=== PATIENT | female | born 1945 | race Caucasian/White ===

== ENCOUNTER 2016-12-09 17:07 | Inpatient (IN) | payer OTHER ==
[~2016-12-09] VITALS: Ht 149.9 cm; Wt 82.4 kg
[~2016-12-09 17:07] MED LIST: ATOR40TA78 PO; CITA40TA5 PO; DOCU-30 PO; FAMO20TA7 PO; HYDR25TA6 PO; LISI-167 PO; MECL12.52 PO; MELO-184 PO; METH500T7 PO; ONDA4TAB7 PO; OXYB5TAB7 PO; PRED10TA PO; TRAM50TA2 PO; ZOLP10TA5 PO
[2016-12-09] MEDS ORDERED: OXYC-302 PO (17:52)
[2016-12-09] MEDS ORDERED: BACL20TA PO (17:52)
[2016-12-09] MEDS ORDERED: MORP15TA39 PO (17:52)
[2016-12-09] MEDS ORDERED: DIAZ5TAB4 PO (17:52)
[2016-12-09] MEDS ORDERED: FAMO40TA4 PO (17:52)
[2016-12-09] MEDS ORDERED: ALBU0.63 NEB (17:52)
[2016-12-09] MEDS ORDERED: GABA300C10 PO (17:52)
[2016-12-09] MEDS ORDERED: ALBUTEROL SULFATE 2.5 MG/3 ML ONE (17:55)
[2016-12-09] MEDS ORDERED: AZITHROMYCIN 500 MG in SODIUM CHLORIDE 0.9% 250 ML IVPB ONE (18:00)
[2016-12-09] MEDS ORDERED: ALBUTEROL SULFATE 2.5 MG/3 ML NPPB ONE (18:00)
[2016-12-09] MEDS ORDERED: methylPREDNISolone SOD SUCC 125 MG/2 ML IVP ONE (18:00)
[2016-12-09] MEDS ORDERED: SODIUM CHLORIDE FLUSH 10ML SYR IVF ONE (18:00)
[2016-12-09 18:12] LABS: HEMOGLOBIN 9.8 g/dL (11.7-16.4)
[2016-12-09] MEDS ORDERED: methylPREDNISolone SOD SUCC 125 MG/2 ML ONE (18:19)
[2016-12-09 18:23] LABS: ASPARTATE AMINO TRANSFERASE 31 U/L (15-37); BLOOD UREA NITROGEN 15 mg/dL (7-18)
[2016-12-09 18:28] LABS: IS PT STATUS REG ER OR PRE ER? YES
[2016-12-09] MEDS ORDERED: ASPIRIN 81 MG TABLET CHEW PO ONE (19:00)
[2016-12-09] MEDS ORDERED: ASPIRIN 81 MG TABLET CHEW ONE (19:15)
[2016-12-09] MEDS ORDERED: NS + 20MEQ KCL 1,000 ML IV SCH (19:21)
[2016-12-09] MEDS ORDERED: ALBUTEROL SULFATE 2.5 MG/3 ML NEB PRN (19:30)
[2016-12-09] MEDS ORDERED: ACETAMINOPHEN 325 MG TABLET PO PRN (19:30)
[2016-12-09] MEDS ORDERED: POLYETHYLENE GLYCOL 17 GM PACKET PO PRN (19:30)
[2016-12-09] MEDS ORDERED: ONDANSETRON 2MG/ML, 2ML IVP PRN (19:30)
[2016-12-09] MEDS ORDERED: DOCUSATE 100 MG CAPSULE PO PRN (19:30)
[2016-12-09] MEDS ORDERED: MORPHINE SULFATE 4 MG/ML, 1ML IVPush PRN (19:30)
[2016-12-09 20:51] VITALS: BP 124/81
[2016-12-09] MEDS: CEFTRIAXONE PMX 1GM/50ML 50 ML IV SCH (22:01)
[2016-12-09] MEDS: ENOXAPARIN 40 MG/0.4 ML SQ SCH (22:09)
[2016-12-09] MEDS: GABAPENTIN 100 MG CAPSULE PO SCH (22:10)
[2016-12-09] MEDS: OXYBUTYNIN CHLORIDE 5 MG TABLET PO SCH (22:11)
[2016-12-09] MEDS: ATORVASTATIN 40 MG TABLET PO SCH (22:11)
[2016-12-09] MEDS: FAMOTIDINE 40 MG TABLET PO SCH (22:11)
[2016-12-09] MEDS: BACLOFEN 10 MG TABLET PO SCH (22:12)
[2016-12-09] MEDS: DIAZEPAM 5 MG TABLET PO SCH ×2 (22:12→23:02)
[2016-12-09] MEDS: DOCUSATE 100 MG CAPSULE PO SCH (22:12)
[2016-12-09] MEDS: AZITHROMYCIN 500 MG in SODIUM CHLORIDE 0.9% 250 ML IV SCH (22:57)
[2016-12-10 02:00] VITALS: BP 113/54
[2016-12-10 05:53] LABS: IS PT STATUS REG ER OR PRE ER? NO
[2016-12-10] MEDS: ALBUTEROL/IPRATROPIUM 2.5MG/0.5MG, 3 ML NPPB SCH ×4 (07:10→20:40)
[2016-12-10 07:44] VITALS: BP 144/70
[2016-12-10] MEDS: SENNA/DOCUSATE TABLET PO SCH (09:00)
[2016-12-10] MEDS: DIAZEPAM 5 MG TABLET PO SCH ×2 (09:15→19:59)
[2016-12-10] MEDS: CITALOPRAM 20 MG TABLET PO SCH (09:16)
[2016-12-10] MEDS: BACLOFEN 10 MG TABLET PO SCH ×3 (09:16→19:59)
[2016-12-10] MEDS: DOCUSATE 100 MG CAPSULE PO SCH ×2 (09:16→19:59)
[2016-12-10] MEDS: OXYBUTYNIN CHLORIDE 5 MG TABLET PO SCH ×2 (09:16→19:59)
[2016-12-10] MEDS: GABAPENTIN 100 MG CAPSULE PO SCH ×3 (09:16→19:59)
[2016-12-10] MEDS: LISINOPRIL 10 MG TABLET PO SCH (09:17)
[2016-12-10] MEDS: FAMOTIDINE 40 MG TABLET PO SCH ×2 (09:17→19:59)
[2016-12-10 13:06] VITALS: BP 125/56
[2016-12-10] MEDS: OXYcodone/APAP 5/325MG TABLET PO PRN (15:34)
[2016-12-10 19:39] VITALS: BP 115/69
[2016-12-10] MEDS: ATORVASTATIN 40 MG TABLET PO SCH (19:59)
[2016-12-10] MEDS: ENOXAPARIN 40 MG/0.4 ML SQ SCH (22:22)
[2016-12-10] MEDS: CEFTRIAXONE PMX 1GM/50ML 50 ML IV SCH (22:22)
[2016-12-11] MEDS: OXYcodone/APAP 5/325MG TABLET PO PRN ×3 (00:30→16:09)
[2016-12-11 02:58] VITALS: BP 117/69
[2016-12-11 06:10] LABS: HEMOGLOBIN 7.9 g/dL (11.7-16.4)
[2016-12-11 06:15] LABS: BLOOD UREA NITROGEN 9 mg/dL (7-18)
[2016-12-11] MEDS: ALBUTEROL/IPRATROPIUM 2.5MG/0.5MG, 3 ML NPPB SCH ×4 (07:00→19:05)
[2016-12-11 07:13] VITALS: BP 118/75
[2016-12-11] MEDS: BACLOFEN 10 MG TABLET PO SCH ×2 (09:04→16:09)
[2016-12-11] MEDS: DOCUSATE 100 MG CAPSULE PO SCH (09:04)
[2016-12-11] MEDS: GABAPENTIN 100 MG CAPSULE PO SCH ×2 (09:04→16:09)
[2016-12-11] MEDS: OXYBUTYNIN CHLORIDE 5 MG TABLET PO SCH (09:04)
[2016-12-11] MEDS: FAMOTIDINE 40 MG TABLET PO SCH (09:04)
[2016-12-11] MEDS: LISINOPRIL 10 MG TABLET PO SCH (09:04)
[2016-12-11] MEDS: CITALOPRAM 20 MG TABLET PO SCH (09:04)
[2016-12-11] MEDS: SENNA/DOCUSATE TABLET PO SCH (09:05)
[2016-12-11] MEDS: DIAZEPAM 5 MG TABLET PO SCH (09:14)
[2016-12-11 12:37] VITALS: BP 103/64
== END 2016-12-11 19:45 | disposition home or self-care (01) | DRG 189 ==
LOC: ED 18:09 → SUATTDRO 18:46 → EDIP 18:52 → 3NE 20:48
PROVIDERS: ADMIT Family Medicine; ATTEND Family Medicine
DX: J96.01 Acute respiratory failure with hypoxia (principal); E43 Unspecified severe protein-calorie malnutrition; E87.1 Hypo-osmolality and hyponatremia; I24.8 Other forms of acute ischemic heart disease; Z66 Do not resuscitate; E78.5 Hyperlipidemia, unspecified; I10 Essential (primary) hypertension; G89.29 Other chronic pain; M54.9 Dorsalgia, unspecified; E66.9 Obesity, unspecified; K59.00 Constipation, unspecified; Z79.82 Long term (current) use of aspirin; Z82.49 Family history of ischemic heart disease and other diseases of the circulatory system; Z68.36 Body mass index [BMI] 36.0-36.9, adult; Z88.0 Allergy status to penicillin; Z91.013 Allergy to seafood
CPT/HCPCS: 36415; 71010; 80048; 80053; 83605; 83880; 84484; 85025; 87040; 93005; 94640; 96365; 96375; J0456; J0696; J1650; J3480; J7613; J7620; J2930; J7050

== ENCOUNTER → 2017-01-25 | Outpatient (CLI) | payer OTHER ==
[~2017-01-25] MED LIST changes: +ALBU0.63 NEB; +BACL20TA PO; +DIAZ5TAB4 PO; +FAMO40TA4 PO; +GABA300C10 PO; +MORP15TA39 PO; +OXYC-302 PO
== END | disposition home or self-care (01) ==
LOC: RAD 15:06
PROVIDERS: ATTEND Physician Assistant Surgical
DX: M48.56XA Collapsed vertebra, not elsewhere classified, lumbar region, initial encounter for fracture (principal)

== ENCOUNTER 2017-01-28 09:12 | Day surgery (SDC) | payer OTHER ==
[~2017-01-28] VITALS: Ht 149.9 cm; Wt 81.0 kg
[2017-01-28 10:29] VITALS: BP 115/70
[2017-01-28] MEDS ORDERED: MIDAZOLAM 1 MG/ML, 5ML ONE (11:20)
[2017-01-28] MEDS ORDERED: FLUMAZENIL 0.1 MG/1 ML, 5ML ONE (11:20)
[2017-01-28] MEDS ORDERED: FENTANYL PF 100 MCG/2ML ONE (11:20)
[2017-01-28] MEDS ORDERED: NALOXONE 1 MG/ML, 2ML ONE (11:20)
[2017-01-28] MEDS ORDERED: LIDOCAINE 1%, 20ML ONE (11:28)
[2017-01-28] MEDS ORDERED: CEFAZOLIN PMX 1GM/50ML 50 ML ONE (11:29)
[2017-01-28] MEDS ORDERED: VISIPAQUE 270 MG/ML, 50ML BOTTLE ONE (13:16)
[2017-01-28] MEDS ORDERED: OXYcodone/APAP 5/325MG TABLET ONE (14:43)
[2017-01-28] MEDS ORDERED: OXYcodone/APAP 5/325MG TABLET PO ONE (15:00)
== END 2017-01-28 17:50 | disposition home or self-care (01) ==
LOC: OUT 09:12
PROVIDERS: ATTEND Physician Assistant Surgical
DX: M80.88XA Other osteoporosis with current pathological fracture, vertebra(e), initial encounter for fracture (principal); M54.5 Low back pain; Z72.89 Other problems related to lifestyle; I10 Essential (primary) hypertension; E78.00 Pure hypercholesterolemia, unspecified; F41.9 Anxiety disorder, unspecified; F32.9 Major depressive disorder, single episode, unspecified
CPT/HCPCS: 22514; J0690; J2250; J3010; J3490; Q9966; 99156; 99157; J2310

== ENCOUNTER 2017-06-17 09:15 | Inpatient (IN) | payer OTHER ==
[~2017-06-17] VITALS: Ht 149.9 cm; Wt 74.9 kg
[2017-06-17] VITALS (9 sets, daily range): BP systolic 114–136; BP diastolic 60–79
[~2017-06-17 09:15] MED LIST changes: +ASPI-621 PO; +BACL-19 PO; +CHOL400T2 PO; +CHOL500015 PO; +DOCU-131 PO; -DOCU-30 PO; +GABA-826 PO; -MELO-184 PO; +MELO15TA24 PO; +MORP-52 PO; -MORP15TA39 PO; +OXYC1TAB8 PO; +OXYC20TA42 PO; +OXYC5TAB3 PO
[2017-06-17] MEDS ORDERED: ALPR-475 PO (09:45)
[2017-06-17] MEDS ORDERED: POLY17PO5 PO (09:45)
[2017-06-17] MEDS ORDERED: SENN-87 PO (09:45)
[2017-06-17] MEDS ORDERED: ATOR40TA78 PO (09:45)
[2017-06-17] MEDS ORDERED: ACET325T14 PO (09:45)
[2017-06-17] MEDS ORDERED: TRAM50TA2 PO (09:45)
[2017-06-17 10:20] LABS: HEMOGLOBIN 7.5 g/dL (11.7-16.4); WHITE BLOOD COUNT 4.4 x10^3/uL (3.4-10)
[2017-06-17 10:23] LABS: HEMATOCRIT 21.8 % (34.6-47.8)
[2017-06-17 10:25] LABS: BLOOD UREA NITROGEN 15 mg/dL (7-18)
[2017-06-17] MEDS ORDERED: ACETAMINOPHEN 325 MG TABLET ONE ×2 (10:37→10:43)
[2017-06-17 10:38] LABS: DIFF TOTAL CELLS COUNTED 100 CELL DIFF
[2017-06-17 10:39] LABS: ANISOCYTOSIS 1+; POLYCHROMASIA 1+; VERIFY COUNTS? YES
[2017-06-17] MEDS ORDERED: ACETAMINOPHEN 325 MG TABLET PO ONE (11:00)
[2017-06-17] MEDS: HYDROCORTISONE 25 MG SUPP PR SCH ×3 (13:00→22:24)
[2017-06-17] MEDS ORDERED: BACLOFEN 10 MG TABLET PO PRN (13:00)
[2017-06-17] MEDS: SODIUM CHLORIDE 0.9% 1,000 ML IV SCH (17:38)
[2017-06-17] MEDS: GABAPENTIN 100 MG CAPSULE PO SCH ×2 (17:55→22:28)
[2017-06-17] MEDS: BACLOFEN 10 MG TABLET PO SCH ×2 (17:59→22:28)
[2017-06-17] MEDS: ACETAMINOPHEN 325 MG TABLET PO SCH ×2 (17:59→22:28)
[2017-06-17] MEDS ORDERED: ATORVASTATIN 40 MG TABLET PO SCH (21:00)
[2017-06-17 21:08] LABS: HEMATOCRIT 28.3 % (34.6-47.8); HEMOGLOBIN 9.8 g/dL (11.7-16.4)
[2017-06-17 21:19] LABS: ASPARTATE AMINO TRANSFERASE 20 U/L (15-37); BLOOD UREA NITROGEN 14 mg/dL (7-18)
[2017-06-17] MEDS: OXYBUTYNIN CHLORIDE 5 MG TABLET PO SCH (22:28)
[2017-06-18 01:56] VITALS: BP 131/77
[2017-06-18] MEDS: SODIUM CHLORIDE 0.9% 1,000 ML IV SCH (03:17)
[2017-06-18 04:37] LABS: HEMATOCRIT 28.4 % (34.6-47.8); HEMOGLOBIN 9.9 g/dL (11.7-16.4)
[2017-06-18] MEDS: ACETAMINOPHEN 325 MG TABLET PO SCH ×2 (07:00→11:56)
[2017-06-18 07:55] VITALS: BP 155/88
[2017-06-18] MEDS ORDERED: POLYETHYLENE GLYCOL 17 GM PACKET PO SCH (09:00)
[2017-06-18] MEDS ORDERED: CITALOPRAM 20 MG TABLET PO SCH (09:00)
[2017-06-18] MEDS ORDERED: CHOLECALCIFEROL 1,000 UNIT TABLET PO SCH (09:00)
[2017-06-18] MEDS ORDERED: SENNOSIDES 8.6 MG TABLET PO SCH (09:00)
[2017-06-18] MEDS ORDERED: LISINOPRIL 10 MG TABLET PO SCH (09:00)
[2017-06-18] MEDS ORDERED: ASPIRIN 81 MG TABLET EC PO SCH (09:00)
[2017-06-18] MEDS: GABAPENTIN 100 MG CAPSULE PO SCH (10:18)
[2017-06-18] MEDS: BACLOFEN 10 MG TABLET PO SCH (10:18)
[2017-06-18] MEDS: OXYBUTYNIN CHLORIDE 5 MG TABLET PO SCH (10:18)
[2017-06-18] MEDS: HYDROCORTISONE 25 MG SUPP PR SCH (10:19)
[2017-06-18] MEDS ORDERED: HYDR30CR69 PR (13:18)
[2017-06-18] MEDS ORDERED: HYDR25SU3 PR (13:18)
[2017-06-18 13:19] LABS: HEMATOCRIT 29.5 % (34.6-47.8); HEMOGLOBIN 10.2 g/dL (11.7-16.4)
== END 2017-06-18 14:37 | disposition home health service (06) | DRG 377 ==
LOC: ED 09:38 → EDIP 11:42 → 3NW 13:16
PROVIDERS: ADMIT Hospitalist; ATTEND Internal Medicine
PROC: 30233N1 Transfusion of Nonautologous Red Blood Cells into Peripheral Vein, Percutaneous Approach (ICD-10-PCS; principal; 2017-06-17)
DX: K92.2 Gastrointestinal hemorrhage, unspecified (principal); E43 Unspecified severe protein-calorie malnutrition; D62 Acute posthemorrhagic anemia; E87.1 Hypo-osmolality and hyponatremia; D75.89 Other specified diseases of blood and blood-forming organs; E78.5 Hyperlipidemia, unspecified; I10 Essential (primary) hypertension; G89.29 Other chronic pain; K64.4 Residual hemorrhoidal skin tags; K64.8 Other hemorrhoids; M81.0 Age-related osteoporosis without current pathological fracture; Z66 Do not resuscitate; Z80.8 Family history of malignant neoplasm of other organs or systems; Z82.5 Family history of asthma and other chronic lower respiratory diseases; Z90.710 Acquired absence of both cervix and uterus; Z88.6 Allergy status to analgesic agent; Z88.8 Allergy status to other drugs, medicaments and biological substances; Z91.013 Allergy to seafood; Z79.899 Other long term (current) drug therapy; Z68.33 Body mass index [BMI] 33.0-33.9, adult
CPT/HCPCS: 36415; 36430; 80048; 80053; 82040; 82607; 82746; 83735; 84443; 85014; 85018; 85025; 85610; 86850; 86900; 86923; 93005; J7030; P9016

== ENCOUNTER 2017-08-28 11:24 | Inpatient (IN) | payer OTHER ==
[~2017-08-28] VITALS: Ht 139.7 cm; Wt 73.8 kg
[~2017-08-28 11:24] MED LIST changes: +ACET325T14 PO; +ALPR-475 PO; +HYDR25SU3 PR; +HYDR30CR69 PR; +POLY17PO5 PO; +SENN-87 PO
[2017-08-28] MEDS ORDERED: HYDR-3240 PO (13:01)
[2017-08-28 13:15] LABS: ASPARTATE AMINO TRANSFERASE 21 U/L (15-37); BLOOD UREA NITROGEN 16 mg/dL (7-18)
[2017-08-28 13:28] LABS: HEMOGLOBIN 7.7 g/dL (11.7-16.4); WHITE BLOOD COUNT 4.6 x10^3/uL (3.4-10)
[2017-08-28 13:30] LABS: HEMATOCRIT 22.4 % (34.6-47.8)
[2017-08-28 13:44] LABS: ANISOCYTOSIS 1+
[2017-08-28 13:45] LABS: POLYCHROMASIA 1+
[2017-08-28] MEDS ORDERED: BACLOFEN 10 MG TABLET PO PRN (15:00)
[2017-08-28 15:25] VITALS: BP 124/63
[2017-08-28 15:27] LABS: TOTAL IRON BINDING CAPACITY 283 mcg/dL (250-450); TRANSFERRIN 243 mg/dL (200-360)
[2017-08-28] MEDS ORDERED: ONDANSETRON 2MG/ML, 2ML IVPush PRN (15:30)
[2017-08-28] MEDS ORDERED: BISACODYL 10 MG SUPP PR PRN (15:30)
[2017-08-28] MEDS ORDERED: POLYETHYLENE GLYCOL 17 GM PACKET PO PRN (15:30)
[2017-08-28] MEDS ORDERED: HYDROcodone/APAP 5/325 TABLET ONE (15:39)
[2017-08-28] MEDS: HYDROcodone/APAP 5/325 TABLET PO PRN ×2 (15:41→23:21)
[2017-08-28 15:43] VITALS: BP_SYST 113; BP_SYST 124; BP_DIAS 63; BP_DIAS 70
[2017-08-28 15:52] LABS: FERRITIN 476.1 ng/mL (8-252)
[2017-08-28] MEDS ORDERED: ACETAMINOPHEN 325 MG TABLET PO SCH (16:00)
[2017-08-28] MEDS ORDERED: ACETAMINOPHEN 325 MG TABLET PO PRN (16:30)
[2017-08-28 17:33] LABS: PATH.CAST-FLAG NOT PRESENT; SPERM-FLAG NOT PRESENT; SRC-FLAG NOT PRESENT; XTAL-FLAG NOT PRESENT; YLC-FLAG NOT PRESENT
[2017-08-28] MEDS: DIPHENHYDRAMINE 25 MG CAPSULE PO PRN (18:25)
[2017-08-28] MEDS: FERROUS SULFATE 325 MG TABLET PO SCH (18:25)
[2017-08-28] MEDS: SODIUM CHLORIDE 0.9% 1,000 ML IV SCH (18:26)
[2017-08-28] MEDS: GABAPENTIN 100 MG CAPSULE PO SCH ×2 (18:26→20:31)
[2017-08-28 18:36] LABS: HEMATOCRIT 26.2 % (34.6-47.8)
[2017-08-28 19:17] VITALS: BP 132/72
[2017-08-28 19:42] VITALS: BP 126/71
[2017-08-28] MEDS: OXYBUTYNIN CHLORIDE 5 MG TABLET PO SCH (20:29)
[2017-08-28] MEDS: ATORVASTATIN 40 MG TABLET PO SCH (20:31)
[2017-08-28] MEDS: DOCUSATE 100 MG CAPSULE PO SCH (20:31)
[2017-08-28 21:38] LABS: HEMATOCRIT 25.1 % (34.6-47.8); HEMOGLOBIN 8.8 g/dL (11.7-16.4)
[2017-08-29] MEDS: DIPHENHYDRAMINE 25 MG CAPSULE PO PRN ×2 (01:30→11:03)
[2017-08-29 01:45] VITALS: BP 110/69
[2017-08-29] MEDS: SODIUM CHLORIDE 0.9% 1,000 ML IV SCH (04:30)
[2017-08-29] MEDS: PANTOPRAZOLE 40 MG IV IVPush SCH (07:11)
[2017-08-29] MEDS: HYDROcodone/APAP 5/325 TABLET PO PRN ×3 (07:11→22:07)
[2017-08-29 07:23] LABS: ASPARTATE AMINO TRANSFERASE 26 U/L (15-37); BLOOD UREA NITROGEN 9 mg/dL (7-18)
[2017-08-29 07:55] LABS: HEMATOCRIT 25.6 % (34.6-47.8); HEMOGLOBIN 8.9 g/dL (11.7-16.4); WHITE BLOOD COUNT 4.4 x10^3/uL (3.4-10)
[2017-08-29 08:11] LABS: DIFF TOTAL CELLS COUNTED 100 CELL DIFF
[2017-08-29 08:18] VITALS: BP 136/76
[2017-08-29] MEDS: CHOLECALCIFEROL 1,000 UNIT TABLET PO SCH (08:29)
[2017-08-29] MEDS: LISINOPRIL 10 MG TABLET PO SCH (08:30)
[2017-08-29] MEDS: DOCUSATE 100 MG CAPSULE PO SCH ×2 (08:30→21:00)
[2017-08-29] MEDS: OXYBUTYNIN CHLORIDE 5 MG TABLET PO SCH ×2 (08:30→21:03)
[2017-08-29] MEDS: GABAPENTIN 100 MG CAPSULE PO SCH ×3 (08:30→21:02)
[2017-08-29] MEDS: CITALOPRAM 20 MG TABLET PO SCH (08:30)
[2017-08-29] MEDS: FERROUS SULFATE 325 MG TABLET PO SCH ×2 (08:30→12:35)
[2017-08-29] MEDS: SENNOSIDES 8.6 MG TABLET PO SCH (08:31)
[2017-08-29 09:10] LABS: ANISOCYTOSIS 1+
[2017-08-29 09:11] LABS: ROULEAUX 1+
[2017-08-29 09:24] LABS: VERIFY COUNTS? YES
[2017-08-29 10:19] LABS: OCCBLD OBC PASS
[2017-08-29 11:10] LABS: HEMATOCRIT 23.8 % (34.6-47.8); HEMOGLOBIN 8.6 g/dL (11.7-16.4)
[2017-08-29 14:53] VITALS: BP 113/60
[2017-08-29 19:23] VITALS: BP 118/64
[2017-08-29] MEDS: ATORVASTATIN 40 MG TABLET PO SCH (21:02)
[2017-08-30 01:41] VITALS: BP 111/68
[2017-08-30 05:14] LABS: HEMATOCRIT 23.5 % (34.6-47.8); HEMOGLOBIN 8.3 g/dL (11.7-16.4); WHITE BLOOD COUNT 4.3 x10^3/uL (3.4-10)
[2017-08-30 05:23] LABS: ASPARTATE AMINO TRANSFERASE 20 U/L (15-37); BLOOD UREA NITROGEN 10 mg/dL (7-18)
[2017-08-30 06:11] LABS: DIFF TOTAL CELLS COUNTED 100 CELL DIFF
[2017-08-30 06:13] LABS: ANISOCYTOSIS 1+; ROULEAUX 1+; VERIFY COUNTS? YES
[2017-08-30 06:14] LABS: POLYCHROMASIA 1+
[2017-08-30] MEDS ORDERED: LIDOCAINE 1%, 20ML ONE (07:07)
[2017-08-30] MEDS ORDERED: FENTANYL PF 100 MCG/2ML ONE (07:19)
[2017-08-30] MEDS ORDERED: MIDAZOLAM 1 MG/ML, 5ML ONE (07:20)
[2017-08-30] MEDS: LISINOPRIL 10 MG TABLET PO SCH (09:00)
[2017-08-30 09:02] VITALS: BP 110/70
[2017-08-30 09:07] LABS: IMMUNOGLOBULIN A 11 mg/dL (64-422); IMMUNOGLOBULIN G 7293 mg/dL (700-1600); IMMUNOGLOBULIN M 8 mg/dL (26-217)
[2017-08-30] MEDS: PANTOPRAZOLE 40 MG IV IVPush SCH (10:02)
[2017-08-30] MEDS: HYDROcodone/APAP 5/325 TABLET PO PRN ×2 (10:02→16:49)
[2017-08-30 10:30] VITALS: BP 94/56
[2017-08-30] MEDS: CITALOPRAM 20 MG TABLET PO SCH (10:51)
[2017-08-30] MEDS: DOCUSATE 100 MG CAPSULE PO SCH ×2 (10:52→19:58)
[2017-08-30] MEDS: OXYBUTYNIN CHLORIDE 5 MG TABLET PO SCH ×2 (10:53→19:58)
[2017-08-30] MEDS: GABAPENTIN 100 MG CAPSULE PO SCH ×3 (10:54→19:58)
[2017-08-30] MEDS: SENNOSIDES 8.6 MG TABLET PO SCH (10:55)
[2017-08-30] MEDS: CHOLECALCIFEROL 1,000 UNIT TABLET PO SCH (10:59)
[2017-08-30 15:03] VITALS: BP 99/63
[2017-08-30] MEDS: DIPHENHYDRAMINE 25 MG CAPSULE PO PRN (18:14)
[2017-08-30 18:39] VITALS: BP 109/69
[2017-08-30 19:07] LABS: FREE KAPPA LT CHAINS SERUM 136.2 mg/L (3.3-19.4); FREE LAMBDA LT CHAINS SERUM 2.8 mg/L (5.7-26.3); KAPPA/LAMBDA RATIO SERUM 48.64 (0.26-1.65)
[2017-08-30] MEDS: ATORVASTATIN 40 MG TABLET PO SCH (19:58)
[2017-08-31 02:56] VITALS: BP 106/72
[2017-08-31] MEDS: ASPIRIN 81 MG TABLET EC PO SCH (05:24)
[2017-08-31] MEDS: HYDROcodone/APAP 5/325 TABLET PO PRN ×3 (05:24→19:52)
[2017-08-31 06:03] LABS: HEMATOCRIT 24.7 % (34.6-47.8); HEMOGLOBIN 8.6 g/dL (11.7-16.4); WHITE BLOOD COUNT 4.2 x10^3/uL (3.4-10)
[2017-08-31 06:14] LABS: BLOOD UREA NITROGEN 10 mg/dL (7-18)
[2017-08-31 06:30] LABS: ASPARTATE AMINO TRANSFERASE 19 U/L (15-37)
[2017-08-31 06:50] LABS: DIFF TOTAL CELLS COUNTED 100 CELL DIFF
[2017-08-31 07:05] LABS: VERIFY COUNTS? YES
[2017-08-31 07:07] LABS: ROULEAUX 2+
[2017-08-31 07:56] VITALS: BP 118/74
[2017-08-31] MEDS ORDERED: CEFTRIAXONE PMX 1GM/50ML 50 ML IV SCH (08:00)
[2017-08-31] MEDS: CITALOPRAM 20 MG TABLET PO SCH (10:29)
[2017-08-31] MEDS: PANTOPRAZOLE 40 MG IV IVPush SCH (10:29)
[2017-08-31] MEDS: OXYBUTYNIN CHLORIDE 5 MG TABLET PO SCH ×2 (10:30→19:52)
[2017-08-31] MEDS: DOCUSATE 100 MG CAPSULE PO SCH ×2 (10:30→19:52)
[2017-08-31] MEDS: LISINOPRIL 10 MG TABLET PO SCH (10:30)
[2017-08-31] MEDS: GABAPENTIN 100 MG CAPSULE PO SCH ×3 (10:30→19:52)
[2017-08-31] MEDS: CHOLECALCIFEROL 1,000 UNIT TABLET PO SCH (10:30)
[2017-08-31] MEDS: SENNOSIDES 8.6 MG TABLET PO SCH (10:31)
[2017-08-31 14:02] VITALS: BP 110/71
[2017-08-31] MEDS: ATORVASTATIN 40 MG TABLET PO SCH (19:52)
[2017-08-31 20:03] VITALS: BP 127/79
[2017-09-01 01:07] VITALS: BP 114/64
[2017-09-01] MEDS: ASPIRIN 81 MG TABLET EC PO SCH (05:45)
[2017-09-01 05:54] LABS: HEMATOCRIT 24.1 % (34.6-47.8); HEMOGLOBIN 8.5 g/dL (11.7-16.4); WHITE BLOOD COUNT 3.5 x10^3/uL (3.4-10)
[2017-09-01 06:03] LABS: ASPARTATE AMINO TRANSFERASE 19 U/L (15-37); BLOOD UREA NITROGEN 10 mg/dL (7-18)
[2017-09-01] MEDS: HYDROcodone/APAP 5/325 TABLET PO PRN ×3 (06:15→20:22)
[2017-09-01] MEDS: ONDANSETRON ODT 4 MG PO PRN ×2 (06:15→09:38)
[2017-09-01 07:32] VITALS: BP 107/70
[2017-09-01] MEDS: PANTOPRAZOLE 40 MG IV IVPush SCH (09:20)
[2017-09-01] MEDS: CITALOPRAM 20 MG TABLET PO SCH (09:21)
[2017-09-01] MEDS: SENNOSIDES 8.6 MG TABLET PO SCH (09:21)
[2017-09-01] MEDS: DEXAMETHASONE 40 MG in SODIUM CHLORIDE 0.9% 50 ML IV SCH (09:21)
[2017-09-01] MEDS: OXYBUTYNIN CHLORIDE 5 MG TABLET PO SCH ×2 (09:21→20:21)
[2017-09-01] MEDS: CHOLECALCIFEROL 1,000 UNIT TABLET PO SCH (09:21)
[2017-09-01] MEDS: DOCUSATE 100 MG CAPSULE PO SCH ×2 (09:21→20:21)
[2017-09-01] MEDS: GABAPENTIN 100 MG CAPSULE PO SCH ×3 (09:24→20:21)
[2017-09-01] MEDS: LISINOPRIL 10 MG TABLET PO SCH (11:21)
[2017-09-01 14:37] VITALS: BP 112/72
[2017-09-01 19:07] VITALS: BP 97/61
[2017-09-01] MEDS: ATORVASTATIN 40 MG TABLET PO SCH (20:21)
[2017-09-02 01:34] VITALS: BP 104/66
[2017-09-02] MEDS: ASPIRIN 81 MG TABLET EC PO SCH (05:21)
[2017-09-02 06:24] LABS: HEMATOCRIT 23.2 % (34.6-47.8); HEMOGLOBIN 8.1 g/dL (11.7-16.4); WHITE BLOOD COUNT 5.2 x10^3/uL (3.4-10)
[2017-09-02 06:30] LABS: BLOOD UREA NITROGEN 18 mg/dL (7-18)
[2017-09-02 06:35] LABS: ASPARTATE AMINO TRANSFERASE 61 U/L (15-37)
[2017-09-02 06:57] LABS: ANISOCYTOSIS 1+; ROULEAUX 2+
[2017-09-02 06:59] LABS: POLYCHROMASIA 1+
[2017-09-02 07:27] VITALS: BP 103/58
[2017-09-02] MEDS: PANTOPRAZOLE 40 MG IV IVPush SCH (07:49)
[2017-09-02] MEDS: DOCUSATE 100 MG CAPSULE PO SCH ×2 (08:59→20:50)
[2017-09-02] MEDS: DEXAMETHASONE 40 MG in SODIUM CHLORIDE 0.9% 50 ML IV SCH (08:59)
[2017-09-02] MEDS: CITALOPRAM 20 MG TABLET PO SCH (08:59)
[2017-09-02] MEDS: CHOLECALCIFEROL 1,000 UNIT TABLET PO SCH (08:59)
[2017-09-02] MEDS: LISINOPRIL 10 MG TABLET PO SCH (08:59)
[2017-09-02] MEDS: OXYBUTYNIN CHLORIDE 5 MG TABLET PO SCH ×2 (08:59→20:50)
[2017-09-02] MEDS: SENNOSIDES 8.6 MG TABLET PO SCH (08:59)
[2017-09-02] MEDS: GABAPENTIN 100 MG CAPSULE PO SCH ×3 (08:59→20:50)
[2017-09-02] MEDS: HYDROcodone/APAP 5/325 TABLET PO PRN ×2 (11:27→16:45)
[2017-09-02 13:34] VITALS: BP 99/65
[2017-09-02 18:51] VITALS: BP 109/69
[2017-09-02] MEDS: ATORVASTATIN 40 MG TABLET PO SCH (20:50)
[2017-09-02] MEDS: ONDANSETRON ODT 4 MG PO PRN (20:58)
[2017-09-02] MEDS: BUTALB/APAP/CAFFEINE 50MG/325MG/40MG PO PRN (21:56)
[2017-09-03] VITALS (7 sets, daily range): BP systolic 111–135; BP diastolic 67–81
[2017-09-03 04:54] LABS: HEMOGLOBIN 7.4 g/dL (11.7-16.4); WHITE BLOOD COUNT 5.2 x10^3/uL (3.4-10)
[2017-09-03 05:01] LABS: ASPARTATE AMINO TRANSFERASE 40 U/L (15-37); BLOOD UREA NITROGEN 17 mg/dL (7-18)
[2017-09-03 05:04] LABS: HEMATOCRIT 21.6 % (34.6-47.8)
[2017-09-03] MEDS: ASPIRIN 81 MG TABLET EC PO SCH (06:09)
[2017-09-03] MEDS ORDERED: CALCIUM GLUCONATE 4.6 MEQ in SODIUM CHLORIDE 0.9% 50 ML IV ONE (07:30)
[2017-09-03] MEDS: GABAPENTIN 100 MG CAPSULE PO SCH ×3 (08:38→21:18)
[2017-09-03] MEDS: SENNOSIDES 8.6 MG TABLET PO SCH (08:38)
[2017-09-03] MEDS: LISINOPRIL 10 MG TABLET PO SCH (08:38)
[2017-09-03] MEDS: CHOLECALCIFEROL 1,000 UNIT TABLET PO SCH (08:38)
[2017-09-03] MEDS: DOCUSATE 100 MG CAPSULE PO SCH ×2 (08:38→21:19)
[2017-09-03] MEDS: OXYBUTYNIN CHLORIDE 5 MG TABLET PO SCH ×2 (08:38→21:18)
[2017-09-03] MEDS: PANTOPRAZOLE 40 MG IV IVPush SCH (08:38)
[2017-09-03] MEDS: CITALOPRAM 20 MG TABLET PO SCH (08:38)
[2017-09-03] MEDS: DEXAMETHASONE 40 MG in SODIUM CHLORIDE 0.9% 50 ML IV SCH (09:44)
[2017-09-03 10:10] LABS: HEMOGLOBIN 7.9 g/dL (11.7-16.4)
[2017-09-03 10:21] LABS: HEMATOCRIT 22.6 % (34.6-47.8)
[2017-09-03] MEDS: HYDROcodone/APAP 5/325 TABLET PO PRN ×2 (11:27→17:19)
[2017-09-03 16:19] LABS: HEMOGLOBIN 7.8 g/dL (11.7-16.4)
[2017-09-03 16:20] LABS: HEMATOCRIT 22.2 % (34.6-47.8)
[2017-09-03] MEDS: ATORVASTATIN 40 MG TABLET PO SCH (21:18)
[2017-09-04] VITALS (7 sets, daily range): BP systolic 120–147; BP diastolic 71–92
[2017-09-04] MEDS: HYDROcodone/APAP 5/325 TABLET PO PRN ×2 (00:18→05:18)
[2017-09-04] MEDS: ASPIRIN 81 MG TABLET EC PO SCH (05:18)
[2017-09-04 05:30] LABS: HEMATOCRIT 29.3 % (34.6-47.8); HEMOGLOBIN 10.2 g/dL (11.7-16.4); WHITE BLOOD COUNT 4.9 x10^3/uL (3.4-10)
[2017-09-04 05:38] LABS: ASPARTATE AMINO TRANSFERASE 48 U/L (15-37); BLOOD UREA NITROGEN 17 mg/dL (7-18)
[2017-09-04] MEDS ORDERED: PANTOPROZOLE 40MG TABLET PO SCH (07:30)
[2017-09-04] MEDS: SENNOSIDES 8.6 MG TABLET PO SCH (09:00)
[2017-09-04] MEDS: LISINOPRIL 10 MG TABLET PO SCH (10:37)
[2017-09-04] MEDS: DOCUSATE 100 MG CAPSULE PO SCH (10:37)
[2017-09-04] MEDS: OXYBUTYNIN CHLORIDE 5 MG TABLET PO SCH (10:37)
[2017-09-04] MEDS: GABAPENTIN 100 MG CAPSULE PO SCH ×2 (10:38→17:07)
[2017-09-04] MEDS: CITALOPRAM 20 MG TABLET PO SCH (10:38)
[2017-09-04] MEDS: CHOLECALCIFEROL 1,000 UNIT TABLET PO SCH (10:39)
[2017-09-04] MEDS: DEXAMETHASONE 40 MG in SODIUM CHLORIDE 0.9% 50 ML IV SCH (12:35)
[2017-09-04 13:07] LABS: A/G RATIO 0.5 (0.7-1.7); ALBUMIN 3.6 g/dL (2.9-4.4); ALPHA-1-GLOBULIN 0.2 g/dL (0.0-0.4); GAMMA GLOBULIN 5.4 g/dL (0.4-1.8); PROTEIN TOTAL 10.9 g/dL (6.0-8.5)
[2017-09-04] MEDS ORDERED: BUTA-177 PO (15:10)
[2017-09-04] MEDS ORDERED: ALPR0.254 PO (15:10)
[2017-09-04] MEDS: BUTALB/APAP/CAFFEINE 50MG/325MG/40MG PO PRN (18:11)
== END 2017-09-04 18:30 | disposition home or self-care (01) | DRG 840 ==
LOC: ED 14:42 → EDIP 14:43 → OBSVTOIN 14:47 → ED 15:58 → 4EST 16:33 → 3NW 08-29 21:53
PROVIDERS: ADMIT Family Medicine; ATTEND Family Medicine
PROC: 30233N1 Transfusion of Nonautologous Red Blood Cells into Peripheral Vein, Percutaneous Approach (ICD-10-PCS; principal; 2017-08-28)
PROC: 07DR3ZX Extraction of Iliac Bone Marrow, Percutaneous Approach, Diagnostic (ICD-10-PCS; 2017-08-30)
DX: C90.00 Multiple myeloma not having achieved remission (principal); J96.20 Acute and chronic respiratory failure, unspecified whether with hypoxia or hypercapnia; E44.0 Moderate protein-calorie malnutrition; D62 Acute posthemorrhagic anemia; E87.1 Hypo-osmolality and hyponatremia; F11.20 Opioid dependence, uncomplicated; D53.9 Nutritional anemia, unspecified; E55.9 Vitamin D deficiency, unspecified; E78.5 Hyperlipidemia, unspecified; G89.29 Other chronic pain; I10 Essential (primary) hypertension; L29.9 Pruritus, unspecified; M81.0 Age-related osteoporosis without current pathological fracture; D50.9 Iron deficiency anemia, unspecified; F41.9 Anxiety disorder, unspecified; K57.90 Diverticulosis of intestine, part unspecified, without perforation or abscess without bleeding; Z66 Do not resuscitate; Z79.82 Long term (current) use of aspirin; Z80.1 Family history of malignant neoplasm of trachea, bronchus and lung; Z88.5 Allergy status to narcotic agent; Z91.013 Allergy to seafood; Z80.8 Family history of malignant neoplasm of other organs or systems; Z82.5 Family history of asthma and other chronic lower respiratory diseases; Z90.710 Acquired absence of both cervix and uterus; Z68.37 Body mass index [BMI] 37.0-37.9, adult
CPT/HCPCS: 36415; 36430; 77012; 77075; 80053; 80074; 81001; 82232; 82272; 82330; 82607; 82728; 82746; 82784; 83540; 83550; 83883; 84155; 84165; 84443; 84466; 85014; 85018; 85025; 85045; 85060; 85097; 85610; 85651; 85730; 86850; 86900; 86923; 87077; 87086; 88184; 88185; 88237; 88264; 88280; 88305; 88311; 88313; 88360; 88374; 99156; 99157; G0364; J0610; J0696; J1100; J2250; J2405; J3010; J3490; Q0162; C9113; G0378; J7030; P9016; Q0163

== ENCOUNTER 2017-09-17 10:21 | Emergency (ER) | payer OTHER ==
[~2017-09-17] VITALS: Ht 139.7 cm; Wt 70.5 kg
[~2017-09-17 10:21] MED LIST changes: +ALPR0.254 PO; +BUTA-177 PO; +HYDR-3240 PO
[2017-09-17] MEDS ORDERED: HYDROcodone/APAP 10/325 MG TABLET PO PRN (11:30)
[2017-09-17] MEDS ORDERED: HYDROcodone/APAP 10/325 MG TABLET ONE (11:46)
[2017-09-17 11:50] LABS: HEMATOCRIT 32.7 % (34.6-47.8); HEMOGLOBIN 11.3 g/dL (11.7-16.4); WHITE BLOOD COUNT 4.4 x10^3/uL (3.4-10)
[2017-09-17 11:56] LABS: ASPARTATE AMINO TRANSFERASE 29 U/L (15-37); BLOOD UREA NITROGEN 19 mg/dL (7-18)
[2017-09-17 11:58] VITALS: BP 121/73
== END 2017-09-17 13:25 | disposition home or self-care (01) ==
LOC: ED 11:24
DX: K64.8 Other hemorrhoids (principal); E78.5 Hyperlipidemia, unspecified; I10 Essential (primary) hypertension; Z90.710 Acquired absence of both cervix and uterus
CPT/HCPCS: 36415; 80053; 85025; 85610; 85730; 86850; 86900; 93005; 99285

== ENCOUNTER → 2017-11-05 | Outpatient (CLI) | payer OTHER ==
[~2017-11-05] MED LIST changes: +OMNIPAQUE 350 MG/ML, 100ML BOTTLE ONE
== END | disposition home or self-care (01) ==
LOC: RAD 12:28
PROVIDERS: ATTEND Specialist
DX: J98.11 Atelectasis (principal); M48.54XA Collapsed vertebra, not elsewhere classified, thoracic region, initial encounter for fracture; C90.00 Multiple myeloma not having achieved remission
CPT/HCPCS: 71275; Q9967

== ENCOUNTER 2017-12-06 17:27 | Emergency (ER) | payer OTHER ==
[~2017-12-06] VITALS: Ht 139.7 cm; Wt 66.8 kg
[~2017-12-06 17:27] MED LIST changes: -OMNIPAQUE 350 MG/ML, 100ML BOTTLE ONE
[2017-12-06] MEDS ORDERED: DEXA4TAB PO (18:11)
[2017-12-06] MEDS ORDERED: BACL20TA PO (18:11)
[2017-12-06] MEDS ORDERED: HYDR12.53 PO (18:11)
[2017-12-06 18:40] LABS: ALBUMIN 3.2 g/dL (3.4-5.0); ANION GAP 6 mmol/L (5-15); CALCIUM 8.4 mg/dL (8.5-10.1); CHLORIDE 102 mmol/L (98-107)
[2017-12-06 18:41] LABS: MEAN CORPUSCULAR HEMOGLOBIN 35.2 pg (27.0-34.8); MEAN CORPUSCULAR VOLUME 103.5 fL (80-100); MEAN PLATELET VOLUME 8.4 fL (7.4-10.4); PLATELET COUNT 141 x10^3/uL (130-400); RED BLOOD COUNT 2.16 x10^6/uL (3.82-5.3); RED CELL DISTRIBUTION WIDTH 20.3 % (9.6-15.2)
[2017-12-06 19:04] LABS: BASOPHILS # (AUTO) 0.01 x10^3/uL (0-0.1); BASOPHILS % (AUTO) 0 % (0-1); EOSINOPHILS # (AUTO) 0.21 x10^3/uL (0-0.4); EOSINOPHILS % (AUTO) 8 % (1-7); LYMPHOCYTES # (AUTO) 0.83 x10^3/uL (1-3.4); LYMPHOCYTES % (AUTO) 30 % (22-44); MD SCAN; MONOCYTES # (AUTO) 0.19 x10^3/uL (0.2-0.8); MONOCYTES % (AUTO) 7 % (2-9); NEUTROPHILS # (AUTO) 1.54 x10^3/uL (1.8-6.8); NEUTROPHILS % (AUTO) 55 % (42-75)
[2017-12-06 19:26] LABS: MICROSCOPIC INDICATED
[2017-12-06 19:37] LABS: CULTURE INDICATED? YES
[2017-12-06 21:01] VITALS: BP 106/36
[2017-12-06 21:05] VITALS: BP 106/36
[2017-12-06 21:20] VITALS: BP 88/34
[2017-12-06 22:11] VITALS: BP 87/33
[2017-12-06] MEDS ORDERED: SODIUM CHLORIDE 0.9% 1,000ML IVBOLUS ONE (22:30)
[2017-12-06 23:16] VITALS: BP 117/65
== END 2017-12-07 00:16 | disposition home or self-care (01) ==
LOC: ED 21:24
DX: E86.0 Dehydration (principal); R06.00 Dyspnea, unspecified; N17.9 Acute kidney failure, unspecified; D62 Acute posthemorrhagic anemia; D61.1 Drug-induced aplastic anemia; D50.9 Iron deficiency anemia, unspecified; I10 Essential (primary) hypertension; E78.5 Hyperlipidemia, unspecified
CPT/HCPCS: 36415; 71045; 80048; 81001; 82040; 83605; 85025; 86850; 86900; 86923; 87040; 87086; 93005; 96360; 99285; J7030; P9016

== ENCOUNTER → 2017-12-09 | Outpatient (CLI) | payer OTHER ==
[~2017-12-09] MED LIST changes: +DEXA4TAB PO; +HYDR12.53 PO
== END ==
LOC: RAD 14:06
PROVIDERS: ATTEND Specialist
DX: C90.00 Multiple myeloma not having achieved remission (principal); M79.604 Pain in right leg; M71.22 Synovial cyst of popliteal space [Baker], left knee
CPT/HCPCS: 93970

== ENCOUNTER 2018-01-13 19:44 | Inpatient (IN) | payer OTHER ==
[~2018-01-13] VITALS: Ht 139.7 cm; Wt 72.4 kg
[~2018-01-13 19:44] MED LIST changes: +ACYC-114 PO; +ATOR20TA9 PO; +CYCL50CA3 PO; +HYDR-882 PO; +ZOLE4VIA IV
[2018-01-13] MEDS ORDERED: SODIUM CHLORIDE 0.9% 1,000ML IVBOLUS ONE (20:00)
[2018-01-13] MEDS ORDERED: SODIUM CHLORIDE FLUSH 10ML SYR IVF ONE (20:00)
[2018-01-13] MEDS ORDERED: IBUPROFEN 200 MG TABLET PO ONE (20:00)
[2018-01-13] MEDS ORDERED: BORT3.5V SQ (20:22)
[2018-01-13] MEDS ORDERED: IRON (20:23)
[2018-01-13] MEDS ORDERED: IBUPROFEN 200 MG TABLET ONE (20:28)
[2018-01-13 20:33] LABS: MEAN CORPUSCULAR HEMOGLOBIN 33.9 pg (27.0-34.8); MEAN CORPUSCULAR HGB CONC 34.6 g/dL (32.4-35.8); MEAN CORPUSCULAR VOLUME 98.1 fL (80-100); MEAN PLATELET VOLUME 9.1 fL (7.4-10.4); PLATELET COUNT 120 x10^3/uL (130-400); RED BLOOD COUNT 2.98 x10^6/uL (3.82-5.3); RED CELL DISTRIBUTION WIDTH 18.5 % (9.6-15.2)
[2018-01-13 20:37] LABS: INTERNATIONAL NORMALIZED RATIO 1.01 (0.93-1.1); PROTHROMBIN TIME 10.4 Seconds (9.6-11.5)
[2018-01-13 20:40] LABS: ALANINE AMINOTRANSFERASE 38 U/L (12-78); ALBUMIN 3.6 g/dL (3.4-5.0); ANION GAP 8 mmol/L (5-15); CALCIUM 8.5 mg/dL (8.5-10.1); CHLORIDE 104 mmol/L (98-107); CREATININE 1.85 mg/dL (0.55-1.02)
[2018-01-13 20:43] LABS: ALKALINE PHOSPHATASE 122 U/L (45-117); BILIRUBIN,TOTAL 0.5 mg/dL (0.2-1.0); TOTAL PROTEIN 8.4 g/dL (6.4-8.2)
[2018-01-13 20:48] LABS: BASOPHILS % (AUTO) 0 % (0-1); EOSINOPHILS % (AUTO) 4 % (1-7); LYMPHOCYTES # (AUTO) 0.46 x10^3/uL (1-3.4); LYMPHOCYTES % (AUTO) 18 % (22-44); MD SCAN; MONOCYTES # (AUTO) 0.15 x10^3/uL (0.2-0.8); MONOCYTES % (AUTO) 6 % (2-9); NEUTROPHILS # (AUTO) 1.85 x10^3/uL (1.8-6.8); NEUTROPHILS % (AUTO) 72 % (42-75)
[2018-01-13] MEDS ORDERED: POTASSIUM CHLORIDE 40 MEQ in SODIUM CHLORIDE 0.9% 500 ML IV ONE (21:00)
[2018-01-13] MEDS ORDERED: CEFTRIAXONE PMX 1GM/50ML 50 ML IV ONE (21:00)
[2018-01-13] MEDS ORDERED: CEFTRIAXONE PMX 1GM/50ML 50 ML ONE (21:32)
[2018-01-13 21:49] LABS: MICROSCOPIC INDICATED
[2018-01-13] MEDS ORDERED: AZITHROMYCIN 500 MG in SODIUM CHLORIDE 0.9% 250 ML IV ONE (22:00)
[2018-01-13 22:06] LABS: CULTURE INDICATED? NO
[2018-01-13] MEDS ORDERED: SODIUM CHLORIDE 0.9%, 500ML IVBOLUS ONE (22:30)
[2018-01-13] MEDS ORDERED: MEROPENEM 500 MG in SODIUM CHLORIDE 0.9% 100 ML IV SCH (22:30)
[2018-01-13] MEDS ORDERED: VANCOMYCIN PER PHARMACY MC PRN (22:30)
[2018-01-13] MEDS ORDERED: VANCOMYCIN PMX 1GM/200ML 200 ML IV ONE ×2 (22:30→23:30)
[2018-01-13] MEDS ORDERED: DOCUSATE 100 MG CAPSULE PO PRN (23:00)
[2018-01-13] MEDS ORDERED: hydrALAzine 20 MG/ML, 1ML IVPush PRN (23:00)
[2018-01-13] MEDS ORDERED: BISACODYL 10 MG SUPP PR PRN (23:00)
[2018-01-13] MEDS ORDERED: LABETALOL 5MG/ML, 20ML IVPush PRN (23:00)
[2018-01-13] MEDS ORDERED: HYDROmorphone 2 MG/ML, 1ML IVPush PRN (23:00)
[2018-01-13] MEDS ORDERED: ONDANSETRON 2MG/ML, 2ML IVPush PRN (23:00)
[2018-01-13] MEDS ORDERED: POLYETHYLENE GLYCOL 17 GM PACKET PO PRN (23:00)
[2018-01-13 23:25] VITALS: BP 108/52
[2018-01-13 23:25] LABS: ANION GAP 7 mmol/L (5-15); CALCIUM 7.7 mg/dL (8.5-10.1); CHLORIDE 111 mmol/L (98-107); CREATININE 1.73 mg/dL (0.55-1.02)
[2018-01-13] MEDS ORDERED: PHARMACOKINETIC CONSULTATION MC ONE (23:30)
[2018-01-13] MEDS ORDERED: PHARMACOKINETIC MONITORING MC PRN (23:30)
[2018-01-13 23:35] LABS: FREE T4 (FREE THYROXINE) 1.12 ng/dL (0.76-1.46)
[2018-01-13 23:51] LABS: HEMOGLOBIN A1C 5.5 % (4.2-6.3)
[2018-01-14 00:38] LABS: RAPID INFLUENZA A Negative (Negative); RAPID INFLUENZA B Negative (Negative)
[2018-01-14 00:43] VITALS: BP 108/52
[2018-01-14] MEDS ORDERED: POTASSIUM CHLORIDE 40 MEQ in SODIUM CHLORIDE 0.9% 500 ML IV ONE (01:00)
[2018-01-14] MEDS: HEPARIN 5,000 UNITS/ML, 1ML SQ SCH ×3 (02:42→17:24)
[2018-01-14] MEDS: GABAPENTIN 100 MG CAPSULE PO SCH ×4 (02:43→21:00)
[2018-01-14] MEDS: ACYCLOVIR 400 MG TABLET PO SCH ×3 (02:43→21:00)
[2018-01-14] MEDS: SODIUM CHLORIDE 0.9% 1,000 ML IV SCH ×2 (02:44→15:22)
[2018-01-14 03:33] VITALS: BP 107/56
[2018-01-14 07:33] VITALS: BP 110/65
[2018-01-14 07:50] LABS: ALANINE AMINOTRANSFERASE 27 U/L (12-78); ALBUMIN 2.6 g/dL (3.4-5.0); ANION GAP 8 mmol/L (5-15); CALCIUM 7.2 mg/dL (8.5-10.1); CHLORIDE 112 mmol/L (98-107); CHOLESTEROL, TOTAL 125 mg/dL (140-239); CREATININE 1.87 mg/dL (0.55-1.02); TRIGLYCERIDES 103 mg/dL (50-200); VLDL CHOLESTEROL 21 mg/dL (0-25)
[2018-01-14 07:52] LABS: ALKALINE PHOSPHATASE 95 U/L (45-117); BILIRUBIN,TOTAL 0.3 mg/dL (0.2-1.0); CHOL/HDL RATIO 2.8; HDL CHOL % 35 % (28-40); HDL CHOLESTEROL (DIRECT) 44 mg/dL (40-60); LDL CHOLESTEROL,CALCULATED 60 mg/dL (54-169); LDL/HDL RATIO 1.4 (0.5-3.0); TOTAL PROTEIN 6.3 g/dL (6.4-8.2)
[2018-01-14 09:00] LABS: BASOPHILS # (AUTO) 0.01 x10^3/uL (0-0.1); BASOPHILS % (AUTO) 0 % (0-1); EOSINOPHILS # (AUTO) 0.06 x10^3/uL (0-0.4); EOSINOPHILS % (AUTO) 3 % (1-7); LYMPHOCYTES # (AUTO) 0.65 x10^3/uL (1-3.4); LYMPHOCYTES % (AUTO) 27 % (22-44); MD SCAN; MEAN CORPUSCULAR HEMOGLOBIN 32.7 pg (27.0-34.8); MEAN CORPUSCULAR HGB CONC 33.3 g/dL (32.4-35.8); MEAN CORPUSCULAR VOLUME 98.2 fL (80-100); MEAN PLATELET VOLUME 8.5 fL (7.4-10.4); MONOCYTES # (AUTO) 0.18 x10^3/uL (0.2-0.8); MONOCYTES % (AUTO) 7 % (2-9); NEUTROPHILS # (AUTO) 1.52 x10^3/uL (1.8-6.8); NEUTROPHILS % (AUTO) 63 % (42-75); PLATELET COUNT 91 x10^3/uL (130-400); RED BLOOD COUNT 2.34 x10^6/uL (3.82-5.3); RED CELL DISTRIBUTION WIDTH 18.5 % (9.6-15.2)
[2018-01-14] MEDS: CITALOPRAM 20 MG TABLET PO SCH (09:29)
[2018-01-14] MEDS: ASPIRIN 81 MG TABLET EC PO SCH (09:30)
[2018-01-14] MEDS: SENNOSIDES 8.6 MG TABLET PO SCH (09:30)
[2018-01-14] MEDS: CHOLECALCIFEROL 1,000 UNIT TABLET PO SCH (09:42)
[2018-01-14 12:34] VITALS: BP 145/84
[2018-01-14] MEDS ORDERED: CEFTRIAXONE PMX 2GM/50ML 50 ML IV SCH (14:30)
[2018-01-14 18:38] VITALS: BP 136/77
[2018-01-14] MEDS ORDERED: VANCOMYCIN 1,400 MG in SODIUM CHLORIDE 0.9% 250 ML IV SCH (20:00)
[2018-01-14] MEDS: CEFTRIAXONE 2 GM in DEXTROSE 5% 50 ML IV SCH (21:00)
[2018-01-15 02:38] VITALS: BP 108/70
[2018-01-15] MEDS: HEPARIN 5,000 UNITS/ML, 1ML SQ SCH ×3 (03:02→18:37)
[2018-01-15 04:32] LABS: HCT (SEDRATE) 25.1 % (34.6-47.8)
[2018-01-15 04:37] LABS: MEAN CORPUSCULAR HEMOGLOBIN 32.8 pg (27.0-34.8); MEAN CORPUSCULAR HGB CONC 33.2 g/dL (32.4-35.8); MEAN CORPUSCULAR VOLUME 98.6 fL (80-100); MEAN PLATELET VOLUME 9.1 fL (7.4-10.4); PLATELET COUNT 96 x10^3/uL (130-400); RED CELL DISTRIBUTION WIDTH 18.5 % (9.6-15.2)
[2018-01-15 04:42] LABS: ALBUMIN 2.7 g/dL (3.4-5.0); ANION GAP 7 mmol/L (5-15); CALCIUM 7.4 mg/dL (8.5-10.1); CHLORIDE 112 mmol/L (98-107)
[2018-01-15 04:55] LABS: ALANINE AMINOTRANSFERASE 54 U/L (12-78); ALKALINE PHOSPHATASE 134 U/L (45-117); BILIRUBIN,TOTAL 0.2 mg/dL (0.2-1.0); CREATININE 2.03 mg/dL (0.55-1.02)
[2018-01-15 05:39] LABS: BASOPHILS # (AUTO) 0.01 x10^3/uL (0-0.1); BASOPHILS % (AUTO) 1 % (0-1); EOSINOPHILS # (AUTO) 0.13 x10^3/uL (0-0.4); EOSINOPHILS % (AUTO) 6 % (1-7); LYMPHOCYTES # (AUTO) 0.61 x10^3/uL (1-3.4); LYMPHOCYTES % (AUTO) 26 % (22-44); MD SCAN; MONOCYTES # (AUTO) 0.21 x10^3/uL (0.2-0.8); MONOCYTES % (AUTO) 9 % (2-9); NEUTROPHILS # (AUTO) 1.37 x10^3/uL (1.8-6.8); NEUTROPHILS % (AUTO) 59 % (42-75)
[2018-01-15] MEDS ORDERED: LACTULOSE 20 GM/30 ML UDC PO ONE (08:00)
[2018-01-15] MEDS ORDERED: POTASSIUM CHLORIDE 20 MEQ TAB.ER.PRT PO SCH (08:00)
[2018-01-15 08:18] VITALS: BP 121/77
[2018-01-15] MEDS ORDERED: AZITHROMYCIN 500 MG TABLET PO SCH (09:00)
[2018-01-15] MEDS: CITALOPRAM 20 MG TABLET PO SCH (09:51)
[2018-01-15] MEDS: ASPIRIN 81 MG TABLET EC PO SCH (09:51)
[2018-01-15] MEDS: SODIUM CHLORIDE 0.9% 1,000 ML IV SCH ×2 (09:51→20:36)
[2018-01-15] MEDS: ACYCLOVIR 400 MG TABLET PO SCH ×2 (09:51→20:35)
[2018-01-15] MEDS: GABAPENTIN 100 MG CAPSULE PO SCH ×3 (09:51→20:35)
[2018-01-15] MEDS: SENNOSIDES 8.6 MG TABLET PO SCH (09:51)
[2018-01-15] MEDS: POTASSIUM CHLORIDE 20 MEQ TAB.ER.PRT PO SCH ×2 (09:52→15:58)
[2018-01-15] MEDS: CHOLECALCIFEROL 1,000 UNIT TABLET PO SCH (09:52)
[2018-01-15 17:24] VITALS: BP 124/77
[2018-01-15 20:10] VITALS: BP 154/8
[2018-01-15] MEDS: BACLOFEN 10 MG TABLET PO PRN (20:28)
[2018-01-15] MEDS: CEFTRIAXONE 2 GM in DEXTROSE 5% 50 ML IV SCH (20:35)
[2018-01-16] MEDS: HEPARIN 5,000 UNITS/ML, 1ML SQ SCH ×3 (03:12→17:50)
[2018-01-16 03:35] VITALS: BP 145/87
[2018-01-16 08:39] LABS: MEAN CORPUSCULAR HGB CONC 33.5 g/dL (32.4-35.8); MEAN CORPUSCULAR VOLUME 98.5 fL (80-100); MEAN PLATELET VOLUME 8.7 fL (7.4-10.4); PLATELET COUNT 88 x10^3/uL (130-400); RED BLOOD COUNT 2.64 x10^6/uL (3.82-5.3); RED CELL DISTRIBUTION WIDTH 18.6 % (9.6-15.2)
[2018-01-16 08:50] LABS: ANION GAP 7 mmol/L (5-15); CALCIUM 7.5 mg/dL (8.5-10.1); CHLORIDE 116 mmol/L (98-107)
[2018-01-16 08:55] LABS: BASOPHILS # (AUTO) 0.01 x10^3/uL (0-0.1); BASOPHILS % (AUTO) 0 % (0-1); EOSINOPHILS # (AUTO) 0.17 x10^3/uL (0-0.4); EOSINOPHILS % (AUTO) 8 % (1-7); LYMPHOCYTES # (AUTO) 0.73 x10^3/uL (1-3.4); LYMPHOCYTES % (AUTO) 34 % (22-44); MD SCAN; MONOCYTES # (AUTO) 0.21 x10^3/uL (0.2-0.8); MONOCYTES % (AUTO) 10 % (2-9); NEUTROPHILS # (AUTO) 1.03 x10^3/uL (1.8-6.8); NEUTROPHILS % (AUTO) 48 % (42-75)
[2018-01-16] MEDS: SENNOSIDES 8.6 MG TABLET PO SCH (09:00)
[2018-01-16] MEDS ORDERED: SODIUM CHLORIDE 0.45% 1,000 ML IV SCH (09:00)
[2018-01-16 09:44] VITALS: BP 146/83
[2018-01-16] MEDS: ASPIRIN 81 MG TABLET EC PO SCH (09:55)
[2018-01-16] MEDS: GABAPENTIN 100 MG CAPSULE PO SCH ×3 (09:55→22:26)
[2018-01-16] MEDS: AZITHROMYCIN 500 MG TABLET PO SCH (09:56)
[2018-01-16] MEDS: CHOLECALCIFEROL 1,000 UNIT TABLET PO SCH (09:56)
[2018-01-16] MEDS: ACYCLOVIR 400 MG TABLET PO SCH ×2 (09:56→22:26)
[2018-01-16] MEDS: CITALOPRAM 20 MG TABLET PO SCH (09:56)
[2018-01-16] MEDS: POTASSIUM CHLORIDE 20 MEQ TAB.ER.PRT PO SCH ×2 (09:56→17:51)
[2018-01-16 13:40] VITALS: BP 139/77
[2018-01-16 19:30] VITALS: BP 135/81
[2018-01-16] MEDS: BACLOFEN 10 MG TABLET PO PRN (22:26)
[2018-01-16] MEDS: CEFTRIAXONE 2 GM in DEXTROSE 5% 50 ML IV SCH (22:26)
[2018-01-17 01:05] VITALS: BP 119/72
[2018-01-17] MEDS: HEPARIN 5,000 UNITS/ML, 1ML SQ SCH ×2 (03:43→11:00)
[2018-01-17 04:38] LABS: ANION GAP 5 mmol/L (5-15); CALCIUM 7.4 mg/dL (8.5-10.1); CHLORIDE 117 mmol/L (98-107); CREATININE 1.93 mg/dL (0.55-1.02)
[2018-01-17 06:57] VITALS: BP 135/76
[2018-01-17] MEDS: SENNOSIDES 8.6 MG TABLET PO SCH (09:00)
[2018-01-17] MEDS: CHOLECALCIFEROL 1,000 UNIT TABLET PO SCH (10:19)
[2018-01-17] MEDS: ACYCLOVIR 400 MG TABLET PO SCH (10:19)
[2018-01-17] MEDS: CITALOPRAM 20 MG TABLET PO SCH (10:19)
[2018-01-17] MEDS: AZITHROMYCIN 500 MG TABLET PO SCH (10:20)
[2018-01-17] MEDS: ASPIRIN 81 MG TABLET EC PO SCH (10:20)
[2018-01-17] MEDS: GABAPENTIN 100 MG CAPSULE PO SCH ×2 (10:20→14:50)
[2018-01-17] MEDS ORDERED: LEVOFLOXACIN 500 MG TABLET PO SCH (11:30)
[2018-01-17] MEDS ORDERED: LEVO500T47 PO (14:35)
== END 2018-01-17 16:48 | disposition home or self-care (01) | DRG 871 ==
LOC: ED 20:36 → EDIP 22:32 → 3NE 23:19 → 3NW 01-14 12:05 → DCLOUNGE 01-17 16:36
PROVIDERS: ADMIT Internal Medicine; ATTEND Internal Medicine
PROC: 0T9B70Z Drainage of Bladder with Drainage Device, Via Natural or Artificial Opening (ICD-10-PCS; principal; 2018-01-13)
DX: A41.9 Sepsis, unspecified organism (principal); J18.1 Lobar pneumonia, unspecified organism; D61.818 Other pancytopenia; E44.0 Moderate protein-calorie malnutrition; N17.9 Acute kidney failure, unspecified; C90.00 Multiple myeloma not having achieved remission; D68.59 Other primary thrombophilia; D64.9 Anemia, unspecified; K57.90 Diverticulosis of intestine, part unspecified, without perforation or abscess without bleeding; M54.9 Dorsalgia, unspecified; G89.29 Other chronic pain; D47.2 Monoclonal gammopathy; E55.9 Vitamin D deficiency, unspecified; E78.5 Hyperlipidemia, unspecified; E87.6 Hypokalemia; F32.9 Major depressive disorder, single episode, unspecified; G47.33 Obstructive sleep apnea (adult) (pediatric); I10 Essential (primary) hypertension; K59.00 Constipation, unspecified; K64.9 Unspecified hemorrhoids; M81.0 Age-related osteoporosis without current pathological fracture; R09.02 Hypoxemia; T45.1X5A Adverse effect of antineoplastic and immunosuppressive drugs, initial encounter; Z90.710 Acquired absence of both cervix and uterus; Z91.81 History of falling; Z99.81 Dependence on supplemental oxygen; Z68.37 Body mass index [BMI] 37.0-37.9, adult
CPT/HCPCS: 36415; 71045; 80048; 80053; 80061; 81001; 82306; 82607; 83036; 83605; 83735; 84145; 84439; 84443; 85025; 85610; 85651; 85730; 86140; 86738; 87040; 87400; 87633; 93005; 96361; 96365; 96366; 96368; J0456; J0696; J1170; J1644; J2185; J3370; J3480; J7030; J7040; J7050

== ENCOUNTER 2018-01-20 22:04 | Inpatient (IN) | payer OTHER ==
[~2018-01-20] VITALS: Ht 139.7 cm; Wt 75.0 kg
[~2018-01-20 22:04] MED LIST changes: +BORT3.5V SQ; +IRON; +LEVO500T47 PO
[2018-01-20 23:04] LABS: MEAN CORPUSCULAR HGB CONC 34.6 g/dL (32.4-35.8); MEAN CORPUSCULAR VOLUME 98.3 fL (80-100); PLATELET COUNT 111 x10^3/uL (130-400); RED BLOOD COUNT 2.42 x10^6/uL (3.82-5.3); RED CELL DISTRIBUTION WIDTH 18.8 % (9.6-15.2)
[2018-01-20 23:09] LABS: ANION GAP 7 mmol/L (5-15); CALCIUM 7.9 mg/dL (8.5-10.1); CHLORIDE 111 mmol/L (98-107); CREATININE 2.75 mg/dL (0.55-1.02)
[2018-01-20 23:17] LABS: ANISOCYTOSIS 1+; BASOPHILS % (AUTO) 0 % (0-1); EOSINOPHILS # (AUTO) 0.12 x10^3/uL (0-0.4); EOSINOPHILS % (AUTO) 5 % (1-7); LYMPHOCYTES # (AUTO) 0.49 x10^3/uL (1-3.4); LYMPHOCYTES % (AUTO) 17 % (22-44); MD MORPH REVIEW ONLY; MONOCYTES # (AUTO) 0.15 x10^3/uL (0.2-0.8); MONOCYTES % (AUTO) 5 % (2-9); NEUTROPHILS # (AUTO) 2.04 x10^3/uL (1.8-6.8); NEUTROPHILS % (AUTO) 73 % (42-75)
[2018-01-20 23:19] LABS: <PLATELET ESTIMATE> DECREASED; LARGE PLATELETS 1+; OVALOCYTES 1+
[2018-01-21] MEDS ORDERED: SODIUM CHLORIDE 0.9% 1,000 ML IV SCH (00:51)
[2018-01-21] MEDS ORDERED: ONDANSETRON 2MG/ML, 2ML IVPush PRN (01:00)
[2018-01-21] MEDS ORDERED: ONDANSETRON ODT 4 MG PO PRN (01:00)
[2018-01-21] MEDS ORDERED: hydrALAzine 20 MG/ML, 1ML IVPush PRN (01:00)
[2018-01-21] MEDS ORDERED: POLYETHYLENE GLYCOL 17 GM PACKET PO PRN (01:00)
[2018-01-21 01:44] VITALS: BP 127/63
[2018-01-21 01:50] VITALS: BP 127/63
[2018-01-21 04:47] LABS: MEAN CORPUSCULAR HEMOGLOBIN 34.1 pg (27.0-34.8); MEAN CORPUSCULAR HGB CONC 34.6 g/dL (32.4-35.8); MEAN CORPUSCULAR VOLUME 98.4 fL (80-100); RED BLOOD COUNT 2.14 x10^6/uL (3.82-5.3); RED CELL DISTRIBUTION WIDTH 18.8 % (9.6-15.2)
[2018-01-21 04:49] LABS: ALBUMIN 2.7 g/dL (3.4-5.0); CALCIUM 7.6 mg/dL (8.5-10.1); CHLORIDE 111 mmol/L (98-107)
[2018-01-21 04:55] LABS: ALANINE AMINOTRANSFERASE 18 U/L (12-78); ALKALINE PHOSPHATASE 93 U/L (45-117); ANION GAP 6 mmol/L (5-15); BILIRUBIN,TOTAL 0.3 mg/dL (0.2-1.0); CREATININE 2.84 mg/dL (0.55-1.02); TOTAL PROTEIN 6.9 g/dL (6.4-8.2)
[2018-01-21 05:57] LABS: BASOPHILS # (AUTO) 0.01 x10^3/uL (0-0.1); BASOPHILS % (AUTO) 0 % (0-1); EOSINOPHILS % (AUTO) 4 % (1-7); LYMPHOCYTES % (AUTO) 23 % (22-44); MD SCAN; MEAN PLATELET VOLUME 9.4 fL (7.4-10.4); MONOCYTES # (AUTO) 0.14 x10^3/uL (0.2-0.8); MONOCYTES % (AUTO) 5 % (2-9); NEUTROPHILS # (AUTO) 1.81 x10^3/uL (1.8-6.8); NEUTROPHILS % (AUTO) 68 % (42-75); PLATELET COUNT 92 x10^3/uL (130-400)
[2018-01-21 08:47] VITALS: BP 124/73
[2018-01-21] MEDS: GABAPENTIN 100 MG CAPSULE PO SCH ×3 (08:53→21:36)
[2018-01-21] MEDS: CITALOPRAM 20 MG TABLET PO SCH (08:53)
[2018-01-21] MEDS: DEXAMETHASONE 4 MG TABLET PO SCH (08:53)
[2018-01-21] MEDS: SENNOSIDES 8.6 MG TABLET PO SCH (08:53)
[2018-01-21] MEDS: ACYCLOVIR 400 MG TABLET PO SCH ×2 (08:53→21:36)
[2018-01-21] MEDS: ASPIRIN 81 MG TABLET EC PO SCH (08:53)
[2018-01-21] MEDS: SODIUM CHLORIDE 0.9% 1,000 ML IV SCH (11:31)
[2018-01-21] MEDS ORDERED: POTASSIUM CHLORIDE 20 MEQ TAB.ER.PRT PO ONE (13:30)
[2018-01-21 14:00] VITALS: BP 137/81
[2018-01-21] MEDS: CARVEDILOL 3.125 MG TABLET PO SCH (17:30)
[2018-01-21 17:58] LABS: MICROSCOPIC AUTO
[2018-01-21 18:01] LABS: CULTURE INDICATED? NO
[2018-01-21 19:41] VITALS: BP 142/79
[2018-01-21] MEDS: BACLOFEN 10 MG TABLET PO PRN (22:58)
[2018-01-22 00:30] VITALS: BP 140/76
[2018-01-22 04:19] LABS: BASOPHILS % (AUTO) 0 % (0-1); EOSINOPHILS # (AUTO) 0.01 x10^3/uL (0-0.4); EOSINOPHILS % (AUTO) 0 % (1-7); LYMPHOCYTES # (AUTO) 0.87 x10^3/uL (1-3.4); LYMPHOCYTES % (AUTO) 26 % (22-44); MD NO; MEAN CORPUSCULAR HEMOGLOBIN 33.3 pg (27.0-34.8); MEAN CORPUSCULAR HGB CONC 33.9 g/dL (32.4-35.8); MEAN CORPUSCULAR VOLUME 98.1 fL (80-100); MEAN PLATELET VOLUME 9.1 fL (7.4-10.4); MONOCYTES # (AUTO) 0.27 x10^3/uL (0.2-0.8); MONOCYTES % (AUTO) 8 % (2-9); NEUTROPHILS # (AUTO) 2.26 x10^3/uL (1.8-6.8); NEUTROPHILS % (AUTO) 66 % (42-75); PLATELET COUNT 106 x10^3/uL (130-400); RED BLOOD COUNT 2.48 x10^6/uL (3.82-5.3); RED CELL DISTRIBUTION WIDTH 19.1 % (9.6-15.2)
[2018-01-22 04:28] LABS: ANION GAP 7 mmol/L (5-15); CHLORIDE 119 mmol/L (98-107); CREATININE 2.99 mg/dL (0.55-1.02)
[2018-01-22] MEDS: CARVEDILOL 3.125 MG TABLET PO SCH ×2 (05:47→18:13)
[2018-01-22] MEDS: SODIUM CHLORIDE 0.9% 1,000 ML IV SCH (05:52)
[2018-01-22 07:36] VITALS: BP 129/67
[2018-01-22] MEDS: SENNOSIDES 8.6 MG TABLET PO SCH (09:00)
[2018-01-22] MEDS ORDERED: FUROSEMIDE 20 MG TABLET PO SCH (09:00)
[2018-01-22] MEDS: CITALOPRAM 20 MG TABLET PO SCH (09:21)
[2018-01-22] MEDS: GABAPENTIN 100 MG CAPSULE PO SCH ×3 (09:22→20:14)
[2018-01-22] MEDS: ACYCLOVIR 400 MG TABLET PO SCH ×2 (09:22→20:14)
[2018-01-22] MEDS: ASPIRIN 81 MG TABLET EC PO SCH (09:22)
[2018-01-22] MEDS: DEXAMETHASONE 4 MG TABLET PO SCH (09:22)
[2018-01-22] MEDS: BACLOFEN 10 MG TABLET PO PRN ×2 (09:27→22:47)
[2018-01-22 10:24] LABS: CLOSTRIDIUM DIFFICILE ANTIGEN NEGATIVE; CLOSTRIDIUM DIFFICILE TOXIN NEGATIVE (Negative)
[2018-01-22 14:04] VITALS: BP 140/79
[2018-01-22 14:26] LABS: CREATININE,URINE RANDOM 28.7 mg/dL
[2018-01-22 19:05] VITALS: BP 141/81
[2018-01-23 01:37] VITALS: BP 129/74
[2018-01-23 05:01] LABS: ANION GAP 6 mmol/L (5-15); CALCIUM 7.7 mg/dL (8.5-10.1); CHLORIDE 115 mmol/L (98-107)
[2018-01-23 06:22] VITALS: BP 131/73
[2018-01-23] MEDS: CARVEDILOL 3.125 MG TABLET PO SCH ×2 (06:26→17:13)
[2018-01-23 07:08] VITALS: BP 146/65
[2018-01-23] MEDS: SENNOSIDES 8.6 MG TABLET PO SCH (09:00)
[2018-01-23] MEDS: ASPIRIN 81 MG TABLET EC PO SCH (10:20)
[2018-01-23] MEDS: DEXAMETHASONE 4 MG TABLET PO SCH (10:22)
[2018-01-23] MEDS: ACYCLOVIR 400 MG TABLET PO SCH ×2 (10:22→19:50)
[2018-01-23] MEDS: GABAPENTIN 100 MG CAPSULE PO SCH ×3 (10:24→22:33)
[2018-01-23] MEDS: CITALOPRAM 20 MG TABLET PO SCH (10:25)
[2018-01-23] MEDS: HEPARIN 5,000 UNITS/ML, 1ML SQ SCH ×3 (10:27→23:15)
[2018-01-23] MEDS ORDERED: ERGOCALCIFEROL 50,000 UNIT CAPSULE PO SCH (11:00)
[2018-01-23 14:05] VITALS: BP 151/78
[2018-01-23 18:59] VITALS: BP 148/84
[2018-01-23] MEDS: TEMAZEPAM 15 MG CAPSULE PO PRN (23:22)
[2018-01-24] VITALS (7 sets, daily range): BP systolic 121–149; BP diastolic 72–89
[2018-01-24 05:01] LABS: % IRON SATURATION 35 % (20-55); ANION GAP 8 mmol/L (5-15); CALCIUM 7.9 mg/dL (8.5-10.1); CHLORIDE 114 mmol/L (98-107); CREATININE 2.06 mg/dL (0.55-1.02); IRON LEVEL 73 mcg/dL (50-170); TOTAL IRON BINDING CAPACITY 208 mcg/dL (250-450)
[2018-01-24] MEDS: CARVEDILOL 3.125 MG TABLET PO SCH ×2 (05:21→17:15)
[2018-01-24] MEDS: HEPARIN 5,000 UNITS/ML, 1ML SQ SCH ×3 (07:12→19:48)
[2018-01-24] MEDS: SENNOSIDES 8.6 MG TABLET PO SCH (07:45)
[2018-01-24] MEDS: CITALOPRAM 20 MG TABLET PO SCH (08:39)
[2018-01-24] MEDS: ACYCLOVIR 400 MG TABLET PO SCH ×2 (08:39→19:46)
[2018-01-24] MEDS: DEXAMETHASONE 4 MG TABLET PO SCH (08:39)
[2018-01-24] MEDS: GABAPENTIN 100 MG CAPSULE PO SCH ×3 (08:39→19:46)
[2018-01-24] MEDS: LISINOPRIL 5 MG TABLET PO SCH (08:40)
[2018-01-24] MEDS: ISOSORBIDE DINITRATE 10 MG TABLET PO SCH ×3 (08:40→19:46)
[2018-01-24] MEDS: ASPIRIN 81 MG TABLET EC PO SCH (08:40)
[2018-01-24] MEDS ORDERED: HYDR-3341 PO (10:36)
[2018-01-24] MEDS ORDERED: CARV3.1212 PO (10:36)
[2018-01-24] MEDS ORDERED: ISOS10TA2 PO (10:36)
[2018-01-24] MEDS ORDERED: DEXAMETHASONE 4 MG TABLET PO ONE (13:30)
[2018-01-24] MEDS ORDERED: ONDANSETRON ODT 8 MG PO ONE (13:30)
[2018-01-24] MEDS ORDERED: HYDROCORTISONE 100 MG INJ. IV ONE (14:00)
[2018-01-24] MEDS ORDERED: CYCLOPHOSPHAMIDE 50 MG PO ONE (14:00)
[2018-01-24] MEDS ORDERED: CYCLOPHOSPHAMIDE 50 MG CAP ONE (15:36)
[2018-01-24] MEDS: TEMAZEPAM 15 MG CAPSULE PO PRN (22:48)
[2018-01-25 02:21] VITALS: BP 145/85
[2018-01-25 03:08] LABS: ANION GAP 7 mmol/L (5-15); CALCIUM 7.7 mg/dL (8.5-10.1); CHLORIDE 112 mmol/L (98-107); CREATININE 1.97 mg/dL (0.55-1.02)
[2018-01-25] MEDS: CARVEDILOL 3.125 MG TABLET PO SCH (05:45)
[2018-01-25 07:10] VITALS: BP 143/84
[2018-01-25] MEDS: HEPARIN 5,000 UNITS/ML, 1ML SQ SCH (07:30)
[2018-01-25] MEDS: ISOSORBIDE DINITRATE 10 MG TABLET PO SCH (10:16)
[2018-01-25] MEDS: DEXAMETHASONE 4 MG TABLET PO SCH (10:16)
[2018-01-25] MEDS: SENNOSIDES 8.6 MG TABLET PO SCH (10:16)
[2018-01-25] MEDS: ACYCLOVIR 400 MG TABLET PO SCH (10:16)
[2018-01-25] MEDS: GABAPENTIN 100 MG CAPSULE PO SCH (10:16)
[2018-01-25] MEDS: CITALOPRAM 20 MG TABLET PO SCH (10:16)
[2018-01-25] MEDS: LISINOPRIL 5 MG TABLET PO SCH (10:17)
[2018-01-25] MEDS: ASPIRIN 81 MG TABLET EC PO SCH (10:17)
[2018-01-25 13:05] VITALS: BP 129/75
[2018-02-12] MEDS ORDERED: SENN-87 PO (08:39)
[2018-02-12] MEDS ORDERED: IRON1TAB60 PO (08:39)
== END 2018-01-25 14:34 | disposition home health service (06) | DRG 682 ==
LOC: ED 22:52 → SUATTDRO 01-21 00:50 → EDIP 01-21 00:51 → 3NW 01-21 01:25
PROVIDERS: ADMIT Hospitalist; ATTEND Hospitalist
PROC: 0T9B70Z Drainage of Bladder with Drainage Device, Via Natural or Artificial Opening (ICD-10-PCS; 2018-01-21)
PROC: 30233N1 Transfusion of Nonautologous Red Blood Cells into Peripheral Vein, Percutaneous Approach (ICD-10-PCS; principal; 2018-01-24)
DX: N17.9 Acute kidney failure, unspecified (principal); R53.2 Functional quadriplegia; D61.818 Other pancytopenia; E87.0 Hyperosmolality and hypernatremia; C90.00 Multiple myeloma not having achieved remission; I12.9 Hypertensive chronic kidney disease with stage 1 through stage 4 chronic kidney disease, or unspecified chronic kidney disease; E55.9 Vitamin D deficiency, unspecified; E78.5 Hyperlipidemia, unspecified; E87.8 Other disorders of electrolyte and fluid balance, not elsewhere classified; G47.30 Sleep apnea, unspecified; G89.29 Other chronic pain; M81.0 Age-related osteoporosis without current pathological fracture; I51.3 Intracardiac thrombosis, not elsewhere classified; M54.9 Dorsalgia, unspecified; F32.9 Major depressive disorder, single episode, unspecified; N18.3 Chronic kidney disease, stage 3 (moderate); R32 Unspecified urinary incontinence; Z90.710 Acquired absence of both cervix and uterus; Z99.81 Dependence on supplemental oxygen; Z92.21 Personal history of antineoplastic chemotherapy; Z87.01 Personal history of pneumonia (recurrent); Z91.013 Allergy to seafood; Z88.6 Allergy status to analgesic agent; Z88.5 Allergy status to narcotic agent
CPT/HCPCS: 36415; 36600; 71045; 76770; 80048; 80053; 81001; 82043; 82570; 82728; 82784; 82803; 83540; 83550; 83735; 83880; 83883; 83970; 84100; 84156; 85025; 86850; 86900; 86923; 87324; 93005; 93306; 93970; 99285; Q0162; J1720; J7030; J8530; P9040

== ENCOUNTER 2018-02-10 23:19 | Emergency (ER) | payer OTHER ==
[~2018-02-10] VITALS: Ht 139.7 cm; Wt 70.0 kg
[~2018-02-10 23:19] MED LIST changes: +CARV3.1212 PO; +HYDR-3341 PO; +ISOS10TA2 PO
[2018-02-10] MEDS ORDERED: ACETAMINOPHEN 325 MG TABLET ONE (23:50)
[2018-02-11] MEDS ORDERED: SODIUM CHLORIDE FLUSH 10ML SYR IVF ONE
[2018-02-11] MEDS ORDERED: ACETAMINOPHEN 325 MG TABLET PO ONE
[2018-02-11 00:10] LABS: MEAN CORPUSCULAR HEMOGLOBIN 33.7 pg (27.0-34.8); MEAN CORPUSCULAR HGB CONC 34.9 g/dL (32.4-35.8); MEAN CORPUSCULAR VOLUME 96.6 fL (80-100); MEAN PLATELET VOLUME 8.7 fL (7.4-10.4); PLATELET COUNT 122 x10^3/uL (130-400); RED CELL DISTRIBUTION WIDTH 17.8 % (9.6-15.2)
[2018-02-11 00:16] LABS: ALANINE AMINOTRANSFERASE 21 U/L (12-78); ALBUMIN 3.1 g/dL (3.4-5.0); ANION GAP 5 mmol/L (5-15); CALCIUM 8.6 mg/dL (8.5-10.1); CHLORIDE 107 mmol/L (98-107); CREATININE 1.21 mg/dL (0.55-1.02)
[2018-02-11 00:18] LABS: ALKALINE PHOSPHATASE 83 U/L (45-117); BILIRUBIN,TOTAL 0.5 mg/dL (0.2-1.0); TOTAL PROTEIN 7.3 g/dL (6.4-8.2)
[2018-02-11 00:19] VITALS: BP 148/76
[2018-02-11 00:26] LABS: BASOPHILS % (AUTO) 0 % (0-1); EOSINOPHILS # (AUTO) 0.08 x10^3/uL (0-0.4); EOSINOPHILS % (AUTO) 3 % (1-7); LYMPHOCYTES # (AUTO) 0.19 x10^3/uL (1-3.4); LYMPHOCYTES % (AUTO) 8 % (22-44); MD NO; MONOCYTES # (AUTO) 0.08 x10^3/uL (0.2-0.8); MONOCYTES % (AUTO) 3 % (2-9); NEUTROPHILS # (AUTO) 2.17 x10^3/uL (1.8-6.8); NEUTROPHILS % (AUTO) 86 % (42-75)
[2018-02-11 00:51] LABS: MICROSCOPIC INDICATED
[2018-02-11 01:06] LABS: CULTURE INDICATED? NO
[2018-02-12] MEDS ORDERED: SENN-87 PO (08:39)
[2018-02-12] MEDS ORDERED: IRON1TAB60 PO (08:39)
== END 2018-02-11 02:57 | disposition home or self-care (01) ==
LOC: ED 23:49
DX: C90.00 Multiple myeloma not having achieved remission (principal); E78.5 Hyperlipidemia, unspecified; I10 Essential (primary) hypertension; Z90.49 Acquired absence of other specified parts of digestive tract; Z99.81 Dependence on supplemental oxygen
CPT/HCPCS: 36415; 71046; 80053; 81001; 83605; 84145; 85025; 87040; 99285

== ENCOUNTER 2018-02-27 09:20 | Day surgery (SDC) | payer OTHER ==
[~2018-02-27] VITALS: Ht 139.7 cm; Wt 68.5 kg
[~2018-02-27 09:20] MED LIST changes: +IRON1TAB60 PO
[2018-02-27] MEDS ORDERED: SODIUM CHLORIDE 0.9% 1,000 ML IV SCH (09:57)
[2018-02-27] MEDS ORDERED: LIDOCAINE-MPF 1%, 2ML ONE (10:38)
[2018-02-27 10:41] VITALS: BP 155/78
[2018-02-27] MEDS ORDERED: ATOR20TA9 PO (10:47)
[2018-02-27] MEDS ORDERED: MIDAZOLAM 1 MG/ML, 5ML ONE (10:58)
[2018-02-27] MEDS ORDERED: FLUMAZENIL 0.1 MG/1 ML, 5ML ONE (10:58)
[2018-02-27] MEDS ORDERED: FENTANYL PF 100 MCG/2ML ONE (10:58)
[2018-02-27] MEDS ORDERED: NALOXONE 1 MG/ML, 2ML ONE (10:58)
[2018-02-27 11:08] LABS: MEAN CORPUSCULAR HEMOGLOBIN 34.1 pg (27.0-34.8); MEAN CORPUSCULAR HGB CONC 35.2 g/dL (32.4-35.8); MEAN CORPUSCULAR VOLUME 96.8 fL (80-100); MEAN PLATELET VOLUME 8.1 fL (7.4-10.4); PLATELET COUNT 136 x10^3/uL (130-400); RED BLOOD COUNT 2.59 x10^6/uL (3.82-5.3); RED CELL DISTRIBUTION WIDTH 17.5 % (9.6-15.2)
[2018-02-27 11:09] LABS: HEMOGRAM NOTE RECHECKED
[2018-02-27 11:11] LABS: BASOPHILS # (AUTO) 0.01 x10^3/uL (0-0.1); BASOPHILS % (AUTO) 0 % (0-1); EOSINOPHILS # (AUTO) 0.09 x10^3/uL (0-0.4); EOSINOPHILS % (AUTO) 5 % (1-7); LYMPHOCYTES # (AUTO) 0.37 x10^3/uL (1-3.4); LYMPHOCYTES % (AUTO) 22 % (22-44); MD SCAN; MONOCYTES # (AUTO) 0.11 x10^3/uL (0.2-0.8); MONOCYTES % (AUTO) 6 % (2-9); NEUTROPHILS # (AUTO) 1.12 x10^3/uL (1.8-6.8); NEUTROPHILS % (AUTO) 66 % (42-75)
== END 2018-02-27 14:05 ==
LOC: OUT 09:20
PROVIDERS: ATTEND Specialist
DX: C90.00 Multiple myeloma not having achieved remission (principal); Z87.39 Personal history of other diseases of the musculoskeletal system and connective tissue; Z98.890 Other specified postprocedural states; Z88.6 Allergy status to analgesic agent; Z88.5 Allergy status to narcotic agent; Z91.013 Allergy to seafood
CPT/HCPCS: 36415; 38222; 77012; 85025; 85060; 85097; 88184; 88185; 88237; 88264; 88280; 88305; 88311; 88313; 88360; 88374; 88377; 99156; J2250; J3010; J3490; J7030; 38221; 99157; J2310

== ENCOUNTER 2018-04-11 18:50 | Inpatient (IN) | payer OTHER ==
[~2018-04-11] VITALS: Ht 139.7 cm; Wt 64.4 kg
[2018-04-11 19:31] LABS: BASOPHILS % (AUTO) 0 % (0-1); EOSINOPHILS # (AUTO) 0.03 x10^3/uL (0-0.4); EOSINOPHILS % (AUTO) 1 % (1-7); LYMPHOCYTES # (AUTO) 0.61 x10^3/uL (1-3.4); LYMPHOCYTES % (AUTO) 10 % (22-44); MD NO; MEAN CORPUSCULAR HEMOGLOBIN 35.1 pg (27.0-34.8); MEAN CORPUSCULAR HGB CONC 34.1 g/dL (32.4-35.8); MEAN CORPUSCULAR VOLUME 103.1 fL (80-100); MEAN PLATELET VOLUME 8.7 fL (7.4-10.4); MONOCYTES # (AUTO) 0.34 x10^3/uL (0.2-0.8); MONOCYTES % (AUTO) 6 % (2-9); NEUTROPHILS # (AUTO) 5.24 x10^3/uL (1.8-6.8); NEUTROPHILS % (AUTO) 84 % (42-75); PLATELET COUNT 176 x10^3/uL (130-400); RED BLOOD COUNT 2.59 x10^6/uL (3.82-5.3); RED CELL DISTRIBUTION WIDTH 20.1 % (9.6-15.2)
[2018-04-11 19:38] LABS: ALBUMIN 3.3 g/dL (3.4-5.0); ANION GAP 12 mmol/L (5-15); CALCIUM 6.3 mg/dL (8.5-10.1); CHLORIDE 112 mmol/L (98-107); CREATININE 6.71 mg/dL (0.55-1.02)
[2018-04-11] MEDS ORDERED: SODIUM CHLORIDE 0.9% 1,000ML IVBOLUS ONE ×2 (20:00)
[2018-04-11] MEDS ORDERED: SODIUM CHLORIDE 0.9% 1,000 ML IV ONE (20:00)
[2018-04-11] MEDS ORDERED: SODIUM CHLORIDE FLUSH 10ML SYR IVF ONE (20:00)
[2018-04-11] MEDS ORDERED: CARV3.122 PO (20:17)
[2018-04-11] MEDS ORDERED: SODIUM CHLORIDE 0.9% 1,000 ML IV SCH (20:36)
[2018-04-11] MEDS ORDERED: BISACODYL 10 MG SUPP PR PRN (21:00)
[2018-04-11] MEDS ORDERED: ONDANSETRON 2MG/ML, 2ML IVPush PRN (21:00)
[2018-04-11] MEDS ORDERED: POLYETHYLENE GLYCOL 17 GM PACKET PO PRN (21:00)
[2018-04-11] MEDS ORDERED: BORTEZOMIB SQ SCH (21:00)
[2018-04-11] MEDS ORDERED: ONDANSETRON ODT 4 MG PO PRN (21:00)
[2018-04-11] MEDS ORDERED: LABETALOL 5MG/ML, 20ML IVPush PRN (21:00)
[2018-04-11] MEDS ORDERED: DOCUSATE 100 MG CAPSULE PO PRN (21:00)
[2018-04-11 21:17] LABS: % IRON SATURATION 111 % (20-55); IRON LEVEL 202 mcg/dL (50-170); TOTAL IRON BINDING CAPACITY 182 mcg/dL (250-450)
[2018-04-11 21:21] VITALS: BP 150/78
[2018-04-11] MEDS: ATORVASTATIN 20 MG TABLET PO SCH (22:37)
[2018-04-11] MEDS: ACYCLOVIR 400 MG TABLET PO SCH (22:37)
[2018-04-11] MEDS: LACTULOSE 10 GM/15 ML UDC PO SCH (22:38)
[2018-04-11] MEDS: GABAPENTIN 100 MG CAPSULE PO SCH (22:39)
[2018-04-11] MEDS: HEPARIN 5,000 UNITS/ML, 1ML SQ SCH (22:41)
[2018-04-12] MEDS: SODIUM BICARB 8.4%,50ML SYR. 75 MEQ in SODIUM CHLORIDE 0.45% 1,000 ML IV SCH ×3 (01:15→19:38)
[2018-04-12 03:07] VITALS: BP 132/81
[2018-04-12 03:53] LABS: MICROSCOPIC AUTO
[2018-04-12 03:54] LABS: CULTURE INDICATED? NO
[2018-04-12 04:03] LABS: CREATININE,URINE RANDOM 25.9 mg/dL
[2018-04-12] MEDS: HEPARIN 5,000 UNITS/ML, 1ML SQ SCH ×3 (05:01→20:48)
[2018-04-12 05:30] LABS: ALBUMIN 2.8 g/dL (3.4-5.0); ANION GAP 12 mmol/L (5-15); CHLORIDE 117 mmol/L (98-107)
[2018-04-12 05:33] LABS: MEAN CORPUSCULAR HEMOGLOBIN 35.1 pg (27.0-34.8); MEAN CORPUSCULAR HGB CONC 33.9 g/dL (32.4-35.8); MEAN CORPUSCULAR VOLUME 103.4 fL (80-100); PLATELET COUNT 128 x10^3/uL (130-400); RED BLOOD COUNT 2.23 x10^6/uL (3.82-5.3); RED CELL DISTRIBUTION WIDTH 20.1 % (9.6-15.2)
[2018-04-12 05:40] LABS: ALANINE AMINOTRANSFERASE 80 U/L (12-78); ALKALINE PHOSPHATASE 129 U/L (45-117); BILIRUBIN,TOTAL 0.2 mg/dL (0.2-1.0); CALCIUM 5.8 mg/dL (8.5-10.1); FREE T4 (FREE THYROXINE) 0.83 ng/dL (0.76-1.46); THYROID STIMULATING HORMONE 0.538 mIU/L (0.358-3.740); TOTAL PROTEIN 6.6 g/dL (6.4-8.2)
[2018-04-12 06:32] LABS: HEMOGLOBIN A1C 4.7 % (4.2-6.3)
[2018-04-12 06:43] LABS: BASOPHILS # (AUTO) 0.01 x10^3/uL (0-0.1); BASOPHILS % (AUTO) 0 % (0-1); EOSINOPHILS # (AUTO) 0.06 x10^3/uL (0-0.4); EOSINOPHILS % (AUTO) 1 % (1-7); LYMPHOCYTES # (AUTO) 0.38 x10^3/uL (1-3.4); LYMPHOCYTES % (AUTO) 10 % (22-44); MD SCAN; MONOCYTES # (AUTO) 0.27 x10^3/uL (0.2-0.8); MONOCYTES % (AUTO) 7 % (2-9); NEUTROPHILS # (AUTO) 3.22 x10^3/uL (1.8-6.8); NEUTROPHILS % (AUTO) 82 % (42-75)
[2018-04-12 07:05] VITALS: BP 102/59
[2018-04-12] MEDS ORDERED: ASPIRIN 81 MG TABLET EC PO SCH (09:00)
[2018-04-12] MEDS ORDERED: SENNOSIDES 8.6 MG PO SCH (09:00)
[2018-04-12] MEDS: SENNA/DOCUSATE TABLET PO SCH (10:00)
[2018-04-12] MEDS: MULTIVITAMINS WITH IRON TABLET PO SCH (10:00)
[2018-04-12] MEDS: CHOLECALCIFEROL 1,000 UNIT TABLET PO SCH (10:00)
[2018-04-12] MEDS: CITALOPRAM 20 MG TABLET PO SCH (10:00)
[2018-04-12] MEDS: LACTULOSE 10 GM/15 ML UDC PO SCH ×2 (10:03→20:48)
[2018-04-12] MEDS: SENNOSIDES 8.6 MG TABLET PO SCH (10:03)
[2018-04-12] MEDS: GABAPENTIN 100 MG CAPSULE PO SCH ×3 (10:03→20:48)
[2018-04-12] MEDS: DEXAMETHASONE 4 MG TABLET PO SCH (10:03)
[2018-04-12] MEDS: ACYCLOVIR 400 MG TABLET PO SCH (10:03)
[2018-04-12] MEDS: CARVEDILOL 3.125 MG TABLET PO SCH (10:24)
[2018-04-12 13:20] VITALS: BP 122/70
[2018-04-12] MEDS: CALCIUM ACETATE 667 MG CAPSULE PO SCH ×2 (15:04→17:45)
[2018-04-12 18:23] VITALS: BP 133/74
[2018-04-12] MEDS: ACYCLOVIR 200 MG CAPSULE PO SCH (20:47)
[2018-04-12] MEDS: ATORVASTATIN 20 MG TABLET PO SCH (20:48)
[2018-04-13 01:22] VITALS: BP 132/72
[2018-04-13] MEDS: SODIUM BICARB 8.4%,50ML SYR. 75 MEQ in SODIUM CHLORIDE 0.45% 1,000 ML IV SCH (04:28)
[2018-04-13] MEDS: HEPARIN 5,000 UNITS/ML, 1ML SQ SCH ×3 (04:28→23:00)
[2018-04-13 05:04] LABS: BASOPHILS % (AUTO) 0 % (0-1); EOSINOPHILS # (AUTO) 0.02 x10^3/uL (0-0.4); EOSINOPHILS % (AUTO) 0 % (1-7); LYMPHOCYTES # (AUTO) 0.41 x10^3/uL (1-3.4); LYMPHOCYTES % (AUTO) 9 % (22-44); MD NO; MEAN CORPUSCULAR HEMOGLOBIN 35.3 pg (27.0-34.8); MEAN CORPUSCULAR HGB CONC 34.4 g/dL (32.4-35.8); MEAN CORPUSCULAR VOLUME 102.6 fL (80-100); MEAN PLATELET VOLUME 9.4 fL (7.4-10.4); MONOCYTES # (AUTO) 0.24 x10^3/uL (0.2-0.8); MONOCYTES % (AUTO) 5 % (2-9); NEUTROPHILS # (AUTO) 3.95 x10^3/uL (1.8-6.8); NEUTROPHILS % (AUTO) 86 % (42-75); PLATELET COUNT 128 x10^3/uL (130-400); RED BLOOD COUNT 2.42 x10^6/uL (3.82-5.3); RED CELL DISTRIBUTION WIDTH 19.2 % (9.6-15.2)
[2018-04-13 05:18] LABS: ANION GAP 12 mmol/L (5-15); CHLORIDE 115 mmol/L (98-107)
[2018-04-13 05:23] LABS: CALCIUM 5.8 mg/dL (8.5-10.1)
[2018-04-13 05:47] LABS: CREATININE 6.15 mg/dL (0.55-1.02)
[2018-04-13] MEDS ORDERED: POTASSIUM CHLORIDE 20 MEQ TAB.ER.PRT PO ONE (07:00)
[2018-04-13 07:03] VITALS: BP 132/78
[2018-04-13] MEDS: LACTULOSE 10 GM/15 ML UDC PO SCH ×2 (09:00→21:16)
[2018-04-13] MEDS: SENNA/DOCUSATE TABLET PO SCH (09:00)
[2018-04-13] MEDS: SENNOSIDES 8.6 MG TABLET PO SCH (09:00)
[2018-04-13] MEDS ORDERED: SODIUM CHLORIDE 0.9% IV ONE (10:00)
[2018-04-13] MEDS ORDERED: CALCIUM CHLORIDE IV ONE (10:00)
[2018-04-13] MEDS ORDERED: CALCIUM GLUCONATE 9.2 MEQ in SODIUM CHLORIDE 0.9% 100 ML IV ONE (10:00)
[2018-04-13] MEDS: ACYCLOVIR 200 MG CAPSULE PO SCH ×2 (10:29→21:17)
[2018-04-13] MEDS: GABAPENTIN 100 MG CAPSULE PO SCH ×3 (10:29→21:17)
[2018-04-13] MEDS: DEXAMETHASONE 4 MG TABLET PO SCH (10:29)
[2018-04-13] MEDS: MULTIVITAMINS WITH IRON TABLET PO SCH (10:29)
[2018-04-13] MEDS: CHOLECALCIFEROL 1,000 UNIT TABLET PO SCH (10:29)
[2018-04-13] MEDS: CARVEDILOL 3.125 MG TABLET PO SCH (10:30)
[2018-04-13] MEDS: CALCIUM CARBONATE 500 MG TABLET PO SCH ×2 (10:30→21:17)
[2018-04-13] MEDS: CALCIUM ACETATE 667 MG CAPSULE PO SCH ×3 (10:30→17:56)
[2018-04-13] MEDS: CITALOPRAM 20 MG TABLET PO SCH (10:30)
[2018-04-13 13:10] VITALS: BP 128/60
[2018-04-13 19:56] VITALS: BP 115/66
[2018-04-13] MEDS: ATORVASTATIN 20 MG TABLET PO SCH (21:17)
[2018-04-14] VITALS (8 sets, daily range): BP systolic 117–143; BP diastolic 66–91
[2018-04-14] MEDS ORDERED: SODIUM BICARB 8.4%,50ML SYR. 75 MEQ in SODIUM CHLORIDE 0.45% 1,000 ML IV SCH (00:30)
[2018-04-14] MEDS: HEPARIN 5,000 UNITS/ML, 1ML SQ SCH ×2 (07:00→16:48)
[2018-04-14 08:23] LABS: INTERNATIONAL NORMALIZED RATIO 1.09 (0.93-1.1); PROTHROMBIN TIME 11.3 Seconds (9.6-11.5)
[2018-04-14 08:24] LABS: BASOPHILS % (AUTO) 0 % (0-1); EOSINOPHILS # (AUTO) 0.08 x10^3/uL (0-0.4); EOSINOPHILS % (AUTO) 2 % (1-7); LYMPHOCYTES # (AUTO) 0.44 x10^3/uL (1-3.4); LYMPHOCYTES % (AUTO) 9 % (22-44); MD NO; MEAN CORPUSCULAR HEMOGLOBIN 34.9 pg (27.0-34.8); MEAN CORPUSCULAR HGB CONC 34.1 g/dL (32.4-35.8); MEAN CORPUSCULAR VOLUME 102.3 fL (80-100); MEAN PLATELET VOLUME 9.3 fL (7.4-10.4); MONOCYTES # (AUTO) 0.18 x10^3/uL (0.2-0.8); MONOCYTES % (AUTO) 4 % (2-9); NEUTROPHILS # (AUTO) 3.94 x10^3/uL (1.8-6.8); NEUTROPHILS % (AUTO) 85 % (42-75); PLATELET COUNT 128 x10^3/uL (130-400); RED BLOOD COUNT 2.21 x10^6/uL (3.82-5.3); RED CELL DISTRIBUTION WIDTH 19.1 % (9.6-15.2)
[2018-04-14 08:25] LABS: ANION GAP 11 mmol/L (5-15); CALCIUM 6.4 mg/dL (8.5-10.1); CHLORIDE 113 mmol/L (98-107); CREATININE 5.79 mg/dL (0.55-1.02)
[2018-04-14 08:31] LABS: TROPONIN I 0.112 ng/mL (0.000-0.045)
[2018-04-14 08:39] LABS: FOLATE LEVEL 19.3 ng/mL (3.1-17.5)
[2018-04-14] MEDS: LACTULOSE 10 GM/15 ML UDC PO SCH ×3 (09:00→21:05)
[2018-04-14] MEDS: CALCIUM CARBONATE 500 MG TABLET PO SCH ×2 (09:00→21:00)
[2018-04-14] MEDS ORDERED: POTASSIUM CHLORIDE 40 MEQ in SODIUM CHLORIDE 0.9% 500 ML IV ONE (09:00)
[2018-04-14] MEDS: SENNOSIDES 8.6 MG TABLET PO SCH (09:00)
[2018-04-14] MEDS: SENNA/DOCUSATE TABLET PO SCH (09:00)
[2018-04-14] MEDS: MULTIVITAMINS WITH IRON TABLET PO SCH (09:49)
[2018-04-14] MEDS: CHOLECALCIFEROL 1,000 UNIT TABLET PO SCH (09:49)
[2018-04-14] MEDS: DEXAMETHASONE 4 MG TABLET PO SCH (09:50)
[2018-04-14] MEDS: CALCIUM ACETATE 667 MG CAPSULE PO SCH ×3 (09:50→16:48)
[2018-04-14] MEDS: CARVEDILOL 3.125 MG TABLET PO SCH (09:50)
[2018-04-14] MEDS: GABAPENTIN 100 MG CAPSULE PO SCH ×3 (09:50→21:06)
[2018-04-14] MEDS: ACYCLOVIR 200 MG CAPSULE PO SCH ×2 (09:50→21:06)
[2018-04-14] MEDS: CITALOPRAM 20 MG TABLET PO SCH (09:50)
[2018-04-14] MEDS: ACETAMINOPHEN 325 MG TABLET PO PRN (10:02)
[2018-04-14] MEDS: POTASSIUM CHLORIDE 20 MEQ TAB.ER.PRT PO SCH ×2 (12:53→16:48)
[2018-04-14 14:49] LABS: TROPONIN I 0.125 ng/mL (0.000-0.045)
[2018-04-14 20:03] LABS: ANION GAP 8 mmol/L (5-15); CALCIUM 6.1 mg/dL (8.5-10.1); CHLORIDE 114 mmol/L (98-107); CREATININE 5.32 mg/dL (0.55-1.02)
[2018-04-14 20:07] LABS: TROPONIN I 0.104 ng/mL (0.000-0.045)
[2018-04-14] MEDS: ATORVASTATIN 20 MG TABLET PO SCH (21:06)
[2018-04-14] MEDS: SODIUM CHLORIDE 0.45% 1,000 ML IV SCH (21:13)
[2018-04-15] MEDS: HEPARIN 5,000 UNITS/ML, 1ML SQ SCH ×3 (00:48→16:31)
[2018-04-15 01:58] VITALS: BP 144/75
[2018-04-15 05:13] LABS: CALCIUM 6.2 mg/dL (8.5-10.1); CHLORIDE 113 mmol/L (98-107)
[2018-04-15 05:16] LABS: ANION GAP 10 mmol/L (5-15); CREATININE 4.86 mg/dL (0.55-1.02)
[2018-04-15 05:25] LABS: BASOPHILS # (AUTO) 0.01 x10^3/uL (0-0.1); BASOPHILS % (AUTO) 0 % (0-1); EOSINOPHILS # (AUTO) 0.01 x10^3/uL (0-0.4); EOSINOPHILS % (AUTO) 0 % (1-7); LYMPHOCYTES # (AUTO) 0.52 x10^3/uL (1-3.4); LYMPHOCYTES % (AUTO) 11 % (22-44); MD NO; MEAN CORPUSCULAR HEMOGLOBIN 34.1 pg (27.0-34.8); MEAN CORPUSCULAR HGB CONC 34.2 g/dL (32.4-35.8); MEAN CORPUSCULAR VOLUME 99.8 fL (80-100); MEAN PLATELET VOLUME 9.4 fL (7.4-10.4); MONOCYTES # (AUTO) 0.27 x10^3/uL (0.2-0.8); MONOCYTES % (AUTO) 6 % (2-9); NEUTROPHILS % (AUTO) 83 % (42-75); PLATELET COUNT 119 x10^3/uL (130-400); RED BLOOD COUNT 2.55 x10^6/uL (3.82-5.3); RED CELL DISTRIBUTION WIDTH 19.5 % (9.6-15.2)
[2018-04-15 07:08] VITALS: BP 159/81
[2018-04-15] MEDS: POTASSIUM CHLORIDE 20 MEQ TAB.ER.PRT PO SCH (08:00)
[2018-04-15] MEDS: CALCIUM ACETATE 667 MG CAPSULE PO SCH ×3 (08:00→16:31)
[2018-04-15] MEDS: CITALOPRAM 20 MG TABLET PO SCH (08:22)
[2018-04-15] MEDS: DEXAMETHASONE 4 MG TABLET PO SCH (08:22)
[2018-04-15] MEDS: LACTULOSE 10 GM/15 ML UDC PO SCH ×2 (08:22→20:01)
[2018-04-15] MEDS: GABAPENTIN 100 MG CAPSULE PO SCH ×3 (08:22→20:02)
[2018-04-15] MEDS: SENNOSIDES 8.6 MG TABLET PO SCH (08:23)
[2018-04-15] MEDS: CALCIUM CARBONATE 500 MG TABLET PO SCH ×2 (08:23→20:02)
[2018-04-15] MEDS: ACYCLOVIR 200 MG CAPSULE PO SCH ×2 (08:23→20:01)
[2018-04-15] MEDS: MULTIVITAMINS WITH IRON TABLET PO SCH (08:23)
[2018-04-15] MEDS: CHOLECALCIFEROL 1,000 UNIT TABLET PO SCH (08:23)
[2018-04-15] MEDS: SENNA/DOCUSATE TABLET PO SCH (08:23)
[2018-04-15] MEDS: CARVEDILOL 3.125 MG TABLET PO SCH (08:29)
[2018-04-15] MEDS ORDERED: CALCIUM CHLORIDE IV ONE (09:00)
[2018-04-15] MEDS ORDERED: SODIUM CHLORIDE 0.9% IV ONE (09:00)
[2018-04-15] MEDS ORDERED: FENTANYL PF 100 MCG/2ML ONE ×2 (10:17)
[2018-04-15] MEDS ORDERED: MIDAZOLAM 1 MG/ML, 5ML ONE (10:18)
[2018-04-15] MEDS ORDERED: NALOXONE 1 MG/ML, 2ML ONE (10:18)
[2018-04-15] MEDS ORDERED: FLUMAZENIL 0.1 MG/1 ML, 5ML ONE (10:18)
[2018-04-15] MEDS ORDERED: LIDOCAINE-MPF 2% ,5ML ONE (10:50)
[2018-04-15] MEDS: SODIUM CHLORIDE 0.45% 1,000 ML IV SCH (12:56)
[2018-04-15 13:52] VITALS: BP 129/79
[2018-04-15] MEDS: ATORVASTATIN 20 MG TABLET PO SCH (20:02)
[2018-04-15] MEDS: ACETAMINOPHEN 325 MG TABLET PO PRN (20:02)
[2018-04-15 20:08] VITALS: BP 148/69
[2018-04-16 02:52] VITALS: BP 159/73
[2018-04-16] MEDS: ACETAMINOPHEN 325 MG TABLET PO PRN ×2 (03:14→09:41)
[2018-04-16] MEDS: SODIUM CHLORIDE 0.45% 1,000 ML IV SCH ×2 (03:16→20:07)
[2018-04-16] MEDS: HEPARIN 5,000 UNITS/ML, 1ML SQ SCH ×3 (03:19→20:06)
[2018-04-16 05:42] LABS: BASOPHILS # (AUTO) 0.01 x10^3/uL (0-0.1); BASOPHILS % (AUTO) 0 % (0-1); EOSINOPHILS # (AUTO) 0.39 x10^3/uL (0-0.4); EOSINOPHILS % (AUTO) 10 % (1-7); LYMPHOCYTES # (AUTO) 0.44 x10^3/uL (1-3.4); LYMPHOCYTES % (AUTO) 11 % (22-44); MD NO; MEAN CORPUSCULAR HEMOGLOBIN 33.7 pg (27.0-34.8); MEAN CORPUSCULAR HGB CONC 33.7 g/dL (32.4-35.8); MEAN CORPUSCULAR VOLUME 99.8 fL (80-100); MEAN PLATELET VOLUME 9.1 fL (7.4-10.4); MONOCYTES # (AUTO) 0.22 x10^3/uL (0.2-0.8); MONOCYTES % (AUTO) 6 % (2-9); NEUTROPHILS # (AUTO) 2.83 x10^3/uL (1.8-6.8); NEUTROPHILS % (AUTO) 73 % (42-75); PLATELET COUNT 130 x10^3/uL (130-400); RED BLOOD COUNT 2.57 x10^6/uL (3.82-5.3); RED CELL DISTRIBUTION WIDTH 19.1 % (9.6-15.2)
[2018-04-16 05:46] LABS: ALBUMIN 2.5 g/dL (3.4-5.0); ANION GAP 9 mmol/L (5-15); CALCIUM 6.8 mg/dL (8.5-10.1); CHLORIDE 113 mmol/L (98-107)
[2018-04-16 05:48] LABS: CREATININE 3.95 mg/dL (0.55-1.02)
[2018-04-16] MEDS: CALCIUM ACETATE 667 MG CAPSULE PO SCH ×3 (08:00→17:29)
[2018-04-16 08:14] VITALS: BP 156/78
[2018-04-16] MEDS: SENNOSIDES 8.6 MG TABLET PO SCH (09:00)
[2018-04-16] MEDS: SENNA/DOCUSATE TABLET PO SCH (09:00)
[2018-04-16] MEDS: LACTULOSE 10 GM/15 ML UDC PO SCH ×2 (09:00→20:09)
[2018-04-16] MEDS ORDERED: MAALOX/HYOSCYAMINE/LIDOCAINE 45 ML BTL PO ONE (10:30)
[2018-04-16] MEDS: GABAPENTIN 100 MG CAPSULE PO SCH ×3 (11:27→20:06)
[2018-04-16] MEDS: CHOLECALCIFEROL 1,000 UNIT TABLET PO SCH (11:27)
[2018-04-16] MEDS: CITALOPRAM 20 MG TABLET PO SCH (11:27)
[2018-04-16] MEDS: MULTIVITAMINS WITH IRON TABLET PO SCH (11:27)
[2018-04-16] MEDS: POTASSIUM CHLORIDE 20 MEQ TAB.ER.PRT PO SCH ×2 (11:27→17:29)
[2018-04-16] MEDS: CARVEDILOL 3.125 MG TABLET PO SCH (11:28)
[2018-04-16] MEDS: CALCIUM CARBONATE 500 MG TABLET PO SCH ×2 (11:28→20:06)
[2018-04-16] MEDS: ACYCLOVIR 200 MG CAPSULE PO SCH ×2 (11:28→20:06)
[2018-04-16] MEDS: DEXAMETHASONE 4 MG TABLET PO SCH (11:28)
[2018-04-16] MEDS ORDERED: CALC667C PO (14:04)
[2018-04-16] MEDS ORDERED: CALC-666 PO (14:04)
[2018-04-16 14:18] VITALS: BP 145/75
[2018-04-16] MEDS: LORazepam 0.5MG TABLET PO PRN (17:29)
[2018-04-16 19:18] VITALS: BP 158/73
[2018-04-16] MEDS: ATORVASTATIN 20 MG TABLET PO SCH (20:05)
[2018-04-16 22:13] LABS: MICROSCOPIC INDICATED
[2018-04-16 22:16] LABS: CULTURE INDICATED? YES
[2018-04-17 03:00] VITALS: BP 164/84
[2018-04-17] MEDS: HEPARIN 5,000 UNITS/ML, 1ML SQ SCH (04:00)
[2018-04-17 06:01] LABS: BASOPHILS # (AUTO) 0.01 x10^3/uL (0-0.1); BASOPHILS % (AUTO) 0 % (0-1); EOSINOPHILS % (AUTO) 0 % (1-7); LYMPHOCYTES # (AUTO) 0.55 x10^3/uL (1-3.4); LYMPHOCYTES % (AUTO) 16 % (22-44); MD NO; MEAN CORPUSCULAR HEMOGLOBIN 34.2 pg (27.0-34.8); MEAN CORPUSCULAR HGB CONC 34.2 g/dL (32.4-35.8); MEAN CORPUSCULAR VOLUME 100.2 fL (80-100); MONOCYTES # (AUTO) 0.26 x10^3/uL (0.2-0.8); MONOCYTES % (AUTO) 7 % (2-9); NEUTROPHILS # (AUTO) 2.68 x10^3/uL (1.8-6.8); NEUTROPHILS % (AUTO) 76 % (42-75); PLATELET COUNT 144 x10^3/uL (130-400); RED BLOOD COUNT 2.69 x10^6/uL (3.82-5.3)
[2018-04-17 06:08] LABS: CHLORIDE 115 mmol/L (98-107)
[2018-04-17 06:12] LABS: ANION GAP 8 mmol/L (5-15); CALCIUM 6.4 mg/dL (8.5-10.1); CREATININE 3.12 mg/dL (0.55-1.02)
[2018-04-17] MEDS: CALCIUM ACETATE 667 MG CAPSULE PO SCH ×3 (08:00→17:38)
[2018-04-17] MEDS: SENNOSIDES 8.6 MG TABLET PO SCH (08:09)
[2018-04-17 08:10] VITALS: BP 161/75
[2018-04-17 10:33] LABS: CLOSTRIDIUM DIFFICILE ANTIGEN NEGATIVE; CLOSTRIDIUM DIFFICILE TOXIN NEGATIVE (Negative)
[2018-04-17] MEDS: LORazepam 0.5MG TABLET PO PRN ×2 (11:41→20:40)
[2018-04-17] MEDS: AMOXICILLIN/CLAV 875-125MG TABLET PO SCH ×2 (11:41→20:40)
[2018-04-17] MEDS: ACYCLOVIR 200 MG CAPSULE PO SCH ×2 (11:41→20:40)
[2018-04-17] MEDS: CITALOPRAM 20 MG TABLET PO SCH (11:41)
[2018-04-17] MEDS: CHOLECALCIFEROL 1,000 UNIT TABLET PO SCH (11:41)
[2018-04-17] MEDS: MULTIVITAMINS WITH IRON TABLET PO SCH (11:41)
[2018-04-17] MEDS: DEXAMETHASONE 4 MG TABLET PO SCH (11:42)
[2018-04-17] MEDS: CARVEDILOL 3.125 MG TABLET PO SCH (11:42)
[2018-04-17] MEDS: CALCIUM CARBONATE 500 MG TABLET PO SCH ×2 (11:42→20:41)
[2018-04-17] MEDS: GABAPENTIN 100 MG CAPSULE PO SCH ×3 (11:42→20:41)
[2018-04-17] MEDS: SODIUM CHLORIDE 0.45% 1,000 ML IV SCH (11:43)
[2018-04-17] MEDS ORDERED: ONDANSETRON 2MG/ML, 2ML ONE (11:57)
[2018-04-17] MEDS ORDERED: ONDANSETRON 2MG/ML, 2ML IVPush PRN (12:00)
[2018-04-17 15:41] VITALS: BP 160/83
[2018-04-17] MEDS: ATORVASTATIN 20 MG TABLET PO SCH (20:40)
[2018-04-17 20:44] VITALS: BP 155/77
[2018-04-18 02:52] VITALS: BP 170/85
[2018-04-18] MEDS: SODIUM CHLORIDE 0.45% 1,000 ML IV SCH ×2 (03:37→13:24)
[2018-04-18 06:01] LABS: BASOPHILS # (AUTO) 0.01 x10^3/uL (0-0.1); BASOPHILS % (AUTO) 0 % (0-1); EOSINOPHILS % (AUTO) 0 % (1-7); LYMPHOCYTES # (AUTO) 0.55 x10^3/uL (1-3.4); LYMPHOCYTES % (AUTO) 17 % (22-44); MD NO; MEAN CORPUSCULAR HEMOGLOBIN 34.9 pg (27.0-34.8); MEAN CORPUSCULAR VOLUME 99.9 fL (80-100); MEAN PLATELET VOLUME 8.9 fL (7.4-10.4); MONOCYTES # (AUTO) 0.32 x10^3/uL (0.2-0.8); MONOCYTES % (AUTO) 10 % (2-9); NEUTROPHILS # (AUTO) 2.32 x10^3/uL (1.8-6.8); NEUTROPHILS % (AUTO) 73 % (42-75); PLATELET COUNT 147 x10^3/uL (130-400); RED BLOOD COUNT 2.54 x10^6/uL (3.82-5.3); RED CELL DISTRIBUTION WIDTH 18.8 % (9.6-15.2)
[2018-04-18 06:13] LABS: ALANINE AMINOTRANSFERASE 32 U/L (12-78); ALBUMIN 2.6 g/dL (3.4-5.0); ANION GAP 8 mmol/L (5-15); CALCIUM 6.1 mg/dL (8.5-10.1); CHLORIDE 112 mmol/L (98-107); CREATININE 2.44 mg/dL (0.55-1.02)
[2018-04-18 06:15] LABS: ALKALINE PHOSPHATASE 77 U/L (45-117); BILIRUBIN,TOTAL 0.3 mg/dL (0.2-1.0); TOTAL PROTEIN 6.3 g/dL (6.4-8.2)
[2018-04-18 09:05] VITALS: BP 153/75
[2018-04-18] MEDS: CALCIUM ACETATE 667 MG CAPSULE PO SCH ×3 (09:09→18:00)
[2018-04-18] MEDS: ACYCLOVIR 200 MG CAPSULE PO SCH ×2 (09:09→20:22)
[2018-04-18] MEDS: DEXAMETHASONE 4 MG TABLET PO SCH (09:10)
[2018-04-18] MEDS: CARVEDILOL 3.125 MG TABLET PO SCH (09:10)
[2018-04-18] MEDS: AMOXICILLIN/CLAV 875-125MG TABLET PO SCH ×2 (09:10→20:23)
[2018-04-18] MEDS: CHOLECALCIFEROL 1,000 UNIT TABLET PO SCH (09:11)
[2018-04-18] MEDS: AMLODIPINE 5 MG TABLET PO SCH (09:11)
[2018-04-18] MEDS: MULTIVITAMINS WITH IRON TABLET PO SCH (09:11)
[2018-04-18] MEDS: CITALOPRAM 20 MG TABLET PO SCH (09:12)
[2018-04-18] MEDS: GABAPENTIN 100 MG CAPSULE PO SCH ×3 (09:12→20:22)
[2018-04-18] MEDS: CALCIUM CARBONATE 500 MG TABLET PO SCH ×2 (09:14→20:24)
[2018-04-18] MEDS: SENNOSIDES 8.6 MG TABLET PO SCH (09:14)
[2018-04-18] MEDS ORDERED: AMOX1TAB12 PO (10:12)
[2018-04-18] MEDS ORDERED: AMLO5TAB2 PO (10:12)
[2018-04-18 11:52] VITALS: BP 147/75
[2018-04-18] MEDS ORDERED: CALCIUM GLUCONATE 9.2 MEQ in SODIUM CHLORIDE 0.9% 100 ML IV ONE (12:00)
[2018-04-18] MEDS ORDERED: CALCIUM CHLORIDE IV ONE (13:00)
[2018-04-18] MEDS ORDERED: SODIUM CHLORIDE 0.9% IV ONE (13:00)
[2018-04-18 15:00] VITALS: BP 156/79
[2018-04-18] MEDS: LORazepam 0.5MG TABLET PO PRN (18:07)
[2018-04-18 18:35] VITALS: BP 160/77
[2018-04-18] MEDS: ATORVASTATIN 20 MG TABLET PO SCH (20:22)
[2018-04-19 00:58] VITALS: BP 157/78
[2018-04-19] MEDS: SODIUM CHLORIDE 0.45% 1,000 ML IV SCH (03:13)
[2018-04-19 05:14] LABS: BASOPHILS % (AUTO) 0 % (0-1); EOSINOPHILS # (AUTO) 0.01 x10^3/uL (0-0.4); EOSINOPHILS % (AUTO) 1 % (1-7); LYMPHOCYTES % (AUTO) 19 % (22-44); MD NO; MEAN CORPUSCULAR HEMOGLOBIN 33.8 pg (27.0-34.8); MEAN CORPUSCULAR HGB CONC 33.7 g/dL (32.4-35.8); MEAN CORPUSCULAR VOLUME 100.3 fL (80-100); MEAN PLATELET VOLUME 8.3 fL (7.4-10.4); MONOCYTES # (AUTO) 0.34 x10^3/uL (0.2-0.8); MONOCYTES % (AUTO) 11 % (2-9); NEUTROPHILS # (AUTO) 2.21 x10^3/uL (1.8-6.8); NEUTROPHILS % (AUTO) 70 % (42-75); PLATELET COUNT 168 x10^3/uL (130-400); RED BLOOD COUNT 2.73 x10^6/uL (3.82-5.3); RED CELL DISTRIBUTION WIDTH 18.4 % (9.6-15.2)
[2018-04-19 05:25] LABS: ALBUMIN 2.8 g/dL (3.4-5.0); ANION GAP 9 mmol/L (5-15); CALCIUM 6.3 mg/dL (8.5-10.1); CHLORIDE 110 mmol/L (98-107)
[2018-04-19 05:29] LABS: ALANINE AMINOTRANSFERASE 27 U/L (12-78); ALKALINE PHOSPHATASE 79 U/L (45-117); BILIRUBIN,TOTAL 0.5 mg/dL (0.2-1.0); CREATININE 1.91 mg/dL (0.55-1.02); TOTAL PROTEIN 6.6 g/dL (6.4-8.2)
[2018-04-19 07:44] VITALS: BP 168/90
[2018-04-19] MEDS ORDERED: POTASSIUM CHLORIDE 20 MEQ TAB.ER.PRT PO SCH (08:00)
[2018-04-19] MEDS: AMOXICILLIN/CLAV 875-125MG TABLET PO SCH (08:50)
[2018-04-19] MEDS: LOPERAMIDE 1 MG/5 ML, 10ML UDC PO SCH ×2 (08:50→14:34)
[2018-04-19] MEDS: ACYCLOVIR 200 MG CAPSULE PO SCH (08:51)
[2018-04-19] MEDS: MULTIVITAMINS WITH IRON TABLET PO SCH (08:51)
[2018-04-19] MEDS: AMLODIPINE 5 MG TABLET PO SCH (08:51)
[2018-04-19] MEDS: CITALOPRAM 20 MG TABLET PO SCH (08:52)
[2018-04-19] MEDS: CARVEDILOL 3.125 MG TABLET PO SCH (08:52)
[2018-04-19] MEDS: CHOLECALCIFEROL 1,000 UNIT TABLET PO SCH (08:52)
[2018-04-19] MEDS: CALCIUM ACETATE 667 MG CAPSULE PO SCH ×2 (08:52→12:25)
[2018-04-19] MEDS: DEXAMETHASONE 4 MG TABLET PO SCH (08:53)
[2018-04-19] MEDS: GABAPENTIN 100 MG CAPSULE PO SCH (08:53)
[2018-04-19] MEDS: SENNOSIDES 8.6 MG TABLET PO SCH (08:53)
[2018-04-19] MEDS: CALCIUM CARBONATE 500 MG TABLET PO SCH (08:54)
[2018-04-19] MEDS: LORazepam 0.5MG TABLET PO PRN (09:12)
[2018-04-19 12:34] VITALS: BP 153/79
[2018-04-19 13:32] VITALS: BP 130/77
[2018-04-19] MEDS ORDERED: LOPE1LIQ31 PO (14:42)
[2018-04-19] MEDS ORDERED: AMLO10TA2 PO (14:42)
[2018-04-19] MEDS ORDERED: AMOX1TAB64 PO (14:42)
[2018-04-19] MEDS ORDERED: POTA20TA6 PO (15:04)
== END 2018-04-19 17:11 | disposition home health service (06) | DRG 682 ==
LOC: ED 20:07 → EDIP 20:31 → 4WST 21:40
PROVIDERS: ADMIT Internal Medicine; ATTEND Internal Medicine
PROC: 30233N1 Transfusion of Nonautologous Red Blood Cells into Peripheral Vein, Percutaneous Approach (ICD-10-PCS; 2018-04-14)
PROC: 0TB13ZX Excision of Left Kidney, Percutaneous Approach, Diagnostic (ICD-10-PCS; principal; 2018-04-15)
DX: N17.0 Acute kidney failure with tubular necrosis (principal); G93.41 Metabolic encephalopathy; C90.00 Multiple myeloma not having achieved remission; E87.2 Acidosis; E44.0 Moderate protein-calorie malnutrition; N39.0 Urinary tract infection, site not specified; R44.3 Hallucinations, unspecified; Z99.81 Dependence on supplemental oxygen; E87.6 Hypokalemia; K59.00 Constipation, unspecified; D53.9 Nutritional anemia, unspecified; E55.9 Vitamin D deficiency, unspecified; D63.8 Anemia in other chronic diseases classified elsewhere; D50.9 Iron deficiency anemia, unspecified; E78.5 Hyperlipidemia, unspecified; I95.9 Hypotension, unspecified; E86.0 Dehydration; F41.9 Anxiety disorder, unspecified; I12.9 Hypertensive chronic kidney disease with stage 1 through stage 4 chronic kidney disease, or unspecified chronic kidney disease; N18.9 Chronic kidney disease, unspecified; R31.0 Gross hematuria; F32.9 Major depressive disorder, single episode, unspecified; G89.29 Other chronic pain; K57.90 Diverticulosis of intestine, part unspecified, without perforation or abscess without bleeding; M54.9 Dorsalgia, unspecified; Z88.5 Allergy status to narcotic agent; Z91.013 Allergy to seafood; Z90.710 Acquired absence of both cervix and uterus; Z90.49 Acquired absence of other specified parts of digestive tract; Z68.33 Body mass index [BMI] 33.0-33.9, adult
CPT/HCPCS: 36415; 50200; 71045; 74176; 76770; 77012; 80048; 80053; 81001; 82040; 82330; 82436; 82570; 82607; 82746; 83036; 83540; 83550; 83605; 83735; 83883; 84100; 84133; 84156; 84166; 84300; 84439; 84443; 84484; 84550; 85025; 85610; 86850; 86900; 86923; 87086; 87324; 88300; 88329; 93005; 93306; 99156; 99157; 99285; J0610; J1644; J2250; J2405; J3010; J3480; J3490; J2310; J7030; J7040; P9040

== ENCOUNTER → 2018-08-01 | Outpatient (CLI) | payer OTHER ==
[~2018-08-01] MED LIST changes: +AMLO10TA6 PO; +AMLO5TAB7 PO; +AMOX1TAB12 PO; +AMOX1TAB64 PO; +CALC-666 PO; +CALC667C PO; +CARV3.122 PO; +HYDR-3653 PO; -HYDR-882 PO; +LOPE1LIQ31 PO; +POTA20TA6 PO
== END | disposition home or self-care (01) ==
LOC: CFH 14:34
PROVIDERS: ATTEND Family Medicine
DX: N63.20 Unspecified lump in the left breast, unspecified quadrant (principal); I12.9 Hypertensive chronic kidney disease with stage 1 through stage 4 chronic kidney disease, or unspecified chronic kidney disease; N18.3 Chronic kidney disease, stage 3 (moderate); L72.3 Sebaceous cyst
CPT/HCPCS: 76770; 77066

== ENCOUNTER 2018-12-04 15:45 | Outpatient (CLI) | payer MEDICARE ==
[~2018-12-04 15:45] MED LIST changes: +AMLO-150 PO; -AMLO10TA6 PO; +AMLO10TA8 PO; -AMLO5TAB7 PO; -ASPI-621 PO; +ASPI81TA45 PO; +ATOR20TA37 PO; -ATOR20TA9 PO; +HYDR12.517 PO; -HYDR12.53 PO; +OMNIPAQUE 350 MG/ML, 100ML BOTTLE ONE; -SENN-87 PO; +SENN-88 PO
== END 2018-12-04 23:59 | disposition home or self-care (01) ==
LOC: RAD 15:45
PROVIDERS: ATTEND Internal Medicine Hematology & Oncology
DX: Z51.11 Encounter for antineoplastic chemotherapy (principal); C90.00 Multiple myeloma not having achieved remission; C79.51 Secondary malignant neoplasm of bone; H05.232 Hemorrhage of left orbit; R07.89 Other chest pain
CPT/HCPCS: 70460; 70481; 71101; Q9967

== ENCOUNTER → 2019-02-25 | Outpatient (CLI) | payer MEDICARE ==
[~2019-02-25] MED LIST changes: -OMNIPAQUE 350 MG/ML, 100ML BOTTLE ONE
== END | disposition home or self-care (01) ==
LOC: PETCFH 09:34
PROVIDERS: ATTEND Internal Medicine Hematology & Oncology
DX: C90.00 Multiple myeloma not having achieved remission (principal); E11.9 Type 2 diabetes mellitus without complications; Z91.041 Radiographic dye allergy status
CPT/HCPCS: 78815; A9552

== ENCOUNTER → 2019-09-03 | Outpatient (CLI) | payer MEDICARE ==
[~2019-09-03] MED LIST changes: -ALPR-475 PO; +ALPR0.5T7 PO; +OXYB5TAB10 PO; -OXYB5TAB7 PO
== END | disposition home or self-care (01) ==
LOC: CFH 12:37
PROVIDERS: ATTEND Family Medicine
DX: Z12.31 Encounter for screening mammogram for malignant neoplasm of breast (principal); N63.20 Unspecified lump in the left breast, unspecified quadrant; N63.10 Unspecified lump in the right breast, unspecified quadrant
CPT/HCPCS: 77067

== ENCOUNTER → 2019-10-29 | Outpatient (CLI) | payer MEDICARE ==
[~2019-10-29] MED LIST changes: +OMNIPAQUE 350 MG/ML, 100ML BOTTLE ONE
== END | disposition home or self-care (01) ==
LOC: EDSTATUS 10-28 15:00 → RAD 11:28
PROVIDERS: ATTEND Family Medicine
DX: J47.9 Bronchiectasis, uncomplicated (principal); M89.8X8 Other specified disorders of bone, other site; R10.9 Unspecified abdominal pain; M43.8X5 Other specified deforming dorsopathies, thoracolumbar region
CPT/HCPCS: 71046; 74177; Q9967

== ENCOUNTER 2020-03-05 14:52 | Emergency (ER) | payer MEDICARE ==
[~2020-03-05] VITALS: Ht 139.7 cm; Wt 64.0 kg
[~2020-03-05 14:52] MED LIST changes: -MECL12.52 PO; +MECL12.581 PO; -OMNIPAQUE 350 MG/ML, 100ML BOTTLE ONE; +SENN-190 PO; -SENN-88 PO
--- NOTE | 2020-03-05 15:01 | NUR ---
THIS IS A 74 YEAR OLD FEMALE WHO WAS BIB AMBULANCE DUE TO SEVERE SHARP UPPER ABD PAIN. PT RECEIEVED 4MG OF ZOFRAN, 100MCG FENTYNL IN ROUTE, GAVE PATIENT 7.5MG OF NORCO, TUMS AND MOTRIN PRIOR TO REMSA. PT STATES PAIN IS NOW 9/10 FROM . 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 AT BS. PLACED ON ROAD GRADER OPERATOR SINUS AT 90, CONTINOUS SP02 AT 98% AND CYCLE VS. AWAIT MD FOR ORDERS
--- NOTE | 2020-03-05 15:21 | NUR ---
REPORT RECEIVED FROM PIPPA GUERRA.
[2020-03-05] MEDS ORDERED: HYDROmorphone 2 MG/ML, 1ML ONE (15:49)
[2020-03-05] MEDS ORDERED: ONDANSETRON 2MG/ML, 2ML ONE (15:49)
[2020-03-05 15:57] LABS: BASOPHILS # (AUTO) 0.01 x10^3/uL (0-0.1); BASOPHILS % (AUTO) 0 % (0-1); EOSINOPHILS # (AUTO) 0.08 x10^3/uL (0-0.4); EOSINOPHILS % (AUTO) 1 % (1-7); LYMPHOCYTES # (AUTO) 0.86 x10^3/uL (1-3.4); LYMPHOCYTES % (AUTO) 8 % (22-44); MD NO; MEAN CORPUSCULAR HEMOGLOBIN 34.9 pg (27.0-34.8); MEAN CORPUSCULAR HGB CONC 33.4 g/dL (32.4-35.8); MEAN CORPUSCULAR VOLUME 104.4 fL (80-100); MONOCYTES # (AUTO) 0.41 x10^3/uL (0.2-0.8); MONOCYTES % (AUTO) 4 % (2-9); NEUTROPHILS # (AUTO) 9.11 x10^3/uL (1.8-6.8); NEUTROPHILS % (AUTO) 87 % (42-75); PLATELET COUNT 227 x10^3/uL (130-400); RED BLOOD COUNT 3.31 x10^6/uL (3.82-5.3)
[2020-03-05] MEDS ORDERED: SODIUM CHLORIDE FLUSH 10ML SYR IVF ONE (16:00)
[2020-03-05] MEDS ORDERED: HYDROmorphone 2 MG/ML, 1ML IVPush ONE (16:00)
[2020-03-05] MEDS ORDERED: ONDANSETRON 2MG/ML, 2ML IVPush ONE (16:00)
--- NOTE | 2020-03-05 16:00 | NUR ---
pt medicated per emar. pt tolerated well.
[2020-03-05 16:04] LABS: ALANINE AMINOTRANSFERASE 18 U/L (12-78); ALBUMIN 3.6 g/dL (3.4-5.0); ANION GAP 8 mmol/L (5-15); CALCIUM 8.7 mg/dL (8.5-10.1); CHLORIDE 97 mmol/L (98-107); CREATININE 1.14 mg/dL (0.55-1.02)
[2020-03-05 16:07] LABS: ALKALINE PHOSPHATASE 55 U/L (45-117); BILIRUBIN,TOTAL 0.4 mg/dL (0.2-1.0); TOTAL PROTEIN 7.3 g/dL (6.4-8.2)
--- NOTE | 2020-03-05 16:12 | NUR ---
bedside comode at bedside. pt aware of ua.
--- NOTE | 2020-03-05 16:24 | NUR ---
pt provided urine sample. urine collected and ua sent.
[2020-03-05 16:33] LABS: MICROSCOPIC INDICATED
[2020-03-05] MEDS ORDERED: OMNIPAQUE 350 MG/ML, 100ML BOTTLE ONE (17:04)
--- NOTE | 2020-03-05 17:22 | NUR ---
pt resting in [facility]. pt's aox4. resps even and unlabored.
[2020-03-05] MEDS ORDERED: CEFTRIAXONE PMX 1GM/50ML 50 ML IVPB ONE (17:30)
[2020-03-05] MEDS ORDERED: CEFTRIAXONE PMX 1GM/50ML 50 ML ONE (17:43)
--- NOTE | 2020-03-05 17:53 | NUR ---
ABX AND NX INFUSING AT THIS TIME. PT TOLERATED WELL. NO BLOOD CULTURE NEEDED PER EDMD.
[2020-03-05 17:54] VITALS: BP 107/50
[2020-03-05] MEDS ORDERED: SODIUM CHLORIDE 0.9% 1,000ML IVBOLUS ONE (18:00)
[2020-03-05] MEDS ORDERED: MAALOX/HYOSCYAMINE/LIDOCAINE 45 ML BTL ONE (18:21)
[2020-03-05] MEDS ORDERED: MAALOX/HYOSCYAMINE/LIDOCAINE 45 ML BTL PO ONE (18:30)
--- NOTE | 2020-03-05 18:40 | NUR ---
PT MEDICATED PER EMAR. PT TOLERATED WELL.
--- NOTE | 2020-03-05 18:42 | NUR ---
EDMD AT BEDSIDE TO EXPLAIN ALL RESULTS AT THIS TIME. AWAITING DC PAPER.
--- NOTE | 2020-03-05 19:21 | NUR ---
Patient given discharge instructions and they have confirmed that they understand the instructions.
== END 2020-03-05 19:22 | disposition home or self-care (01) ==
LOC: ED 16:06
DX: N30.00 Acute cystitis without hematuria (principal); R94.31 Abnormal electrocardiogram [ECG] [EKG]; I10 Essential (primary) hypertension; E78.5 Hyperlipidemia, unspecified; Z90.89 Acquired absence of other organs; Z90.710 Acquired absence of both cervix and uterus
CPT/HCPCS: 36415; 74177; 80053; 81001; 83690; 85025; 87077; 87086; 93005; 96365; 96375; 99285; J0696; J1170; J2405; J7030; Q9967; 87186

== ENCOUNTER 2020-03-06 21:21 | Inpatient (IN) | payer MEDICARE ==
[~2020-03-06] VITALS: Ht 139.7 cm; Wt 70.0 kg
[2020-03-06] MEDS ORDERED: MORPHINE SULFATE 4 MG/ML, 1ML IVPush PRN (22:00)
[2020-03-06] MEDS ORDERED: SODIUM CHLORIDE FLUSH 10ML SYR IVF ONE (22:00)
[2020-03-06 22:35] LABS: BASOPHILS % (AUTO) 0 % (0-1); EOSINOPHILS # (AUTO) 0.02 x10^3/uL (0-0.4); EOSINOPHILS % (AUTO) 0 % (1-7); LYMPHOCYTES # (AUTO) 0.49 x10^3/uL (1-3.4); LYMPHOCYTES % (AUTO) 7 % (22-44); MD NO; MEAN CORPUSCULAR HEMOGLOBIN 35.1 pg (27.0-34.8); MEAN CORPUSCULAR HGB CONC 34.1 g/dL (32.4-35.8); MEAN PLATELET VOLUME 8.1 fL (7.4-10.4); MONOCYTES # (AUTO) 0.17 x10^3/uL (0.2-0.8); MONOCYTES % (AUTO) 2 % (2-9); NEUTROPHILS # (AUTO) 6.26 x10^3/uL (1.8-6.8); NEUTROPHILS % (AUTO) 90 % (42-75); PLATELET COUNT 238 x10^3/uL (130-400); RED BLOOD COUNT 3.53 x10^6/uL (3.82-5.3); RED CELL DISTRIBUTION WIDTH 14.4 % (9.6-15.2)
[2020-03-06] MEDS ORDERED: MORPHINE SULFATE 4 MG/ML, 1ML ONE (22:37)
[2020-03-06 22:43] LABS: ALANINE AMINOTRANSFERASE 419 U/L (12-78); ALBUMIN 3.7 g/dL (3.4-5.0); ANION GAP 7 mmol/L (5-15); CHLORIDE 101 mmol/L (98-107)
[2020-03-06 22:47] LABS: ALKALINE PHOSPHATASE 276 U/L (45-117); BILIRUBIN,TOTAL 1.2 mg/dL (0.2-1.0); TOTAL PROTEIN 7.8 g/dL (6.4-8.2); TROPONIN I 0.025 ng/mL (0.000-0.045)
--- NOTE | 2020-03-06 23:54 | NUR ---
PT RESTING IN BED, AT BEDSIDE. PT UPDATED ON PLAN OF CARE. CALL LIGHT.
[2020-03-07] MEDS ORDERED: BENZ-17 PO (00:08)
[2020-03-07] MEDS ORDERED: SPIR25TA5 PO (00:08)
[2020-03-07] MEDS ORDERED: OMEP20CA20 PO (00:08)
[2020-03-07] MEDS ORDERED: ASPI-515 PO (00:08)
[2020-03-07] MEDS ORDERED: OXYB5TAB10 PO (00:08)
--- NOTE | 2020-03-07 00:09 | NUR ---
REPORT TO RECEIVING RN, PT AND MADE AWARE OF IMPENDING TRANSFER. DENY ANY FURTHER NEEDS OR CONCERNS AT THIS TIME. CALL LIGHT IN REACH.
--- NOTE | 2020-03-07 00:09 | NUR ---
PT MED REC COMPLETED TO THE BEST OF THIS NURSE'S ABILITY. HOME MED LIST MISSING SOME INFORMATION, AND CHEMOTHERAPY MEDICATIONS UNVERIFIED PER HOME LIST.
[2020-03-07 00:35] VITALS: BP 113/52
[2020-03-07] MEDS: SODIUM CHLORIDE 0.9% 1,000 ML IV SCH ×3 (01:59→20:26)
[2020-03-07] MEDS: HEPARIN 5,000 UNITS/ML, 1ML SQ SCH ×3 (01:59→18:00)
[2020-03-07] MEDS ORDERED: hydrALAzine 20 MG/ML, 1ML IVPush PRN (02:00)
[2020-03-07] MEDS ORDERED: ONDANSETRON 2MG/ML, 2ML IVPush PRN (02:00)
[2020-03-07] MEDS ORDERED: morphine SULFATE 10 MG/ML, 1ML IVPush PRN (02:00)
[2020-03-07] MEDS: TRAZODONE 50MG TABLET PO PRN (02:46)
[2020-03-07 07:32] VITALS: BP 112/72
[2020-03-07] MEDS: MULTIVITAMINS WITH IRON TABLET PO SCH (07:47)
[2020-03-07] MEDS: CALCIUM CARBONATE 500 MG TABLET PO SCH ×2 (07:48→20:26)
[2020-03-07] MEDS: BENZONATATE 100 MG CAPSULE PO SCH (07:48)
[2020-03-07] MEDS: ACYCLOVIR 400 MG TABLET PO SCH ×2 (07:48→20:26)
[2020-03-07] MEDS: CITALOPRAM 20 MG TABLET PO SCH (07:48)
[2020-03-07] MEDS: SENNOSIDES 8.6 MG TABLET PO SCH (07:48)
[2020-03-07] MEDS: OMEPRAZOLE 20 MG CAPSULE.DR PO SCH (07:48)
[2020-03-07] MEDS: OXYBUTYNIN CHLORIDE 5 MG TABLET PO SCH (07:50)
[2020-03-07] MEDS: ASPIRIN 81 MG TABLET EC PO SCH (07:50)
[2020-03-07] MEDS: CHOLECALCIFEROL 5,000u TAB PO SCH (07:50)
[2020-03-07] MEDS ORDERED: CHLORHEXIDINE 15 ML UDC ONE (11:58)
[2020-03-07] MEDS ORDERED: CHLORHEXIDINE 15 ML UDC MM ONE (12:00)
[2020-03-07] MEDS ORDERED: PROMETHAZINE 25 MG/ML, 1ML IVPush PRN (12:30)
[2020-03-07] MEDS ORDERED: HALOPERIDOL 5 MG/ML IV PRN (12:30)
[2020-03-07] MEDS ORDERED: DIPHENHYDRAMINE 50 MG/ML, 1ML IVPush PRN (12:30)
[2020-03-07] MEDS ORDERED: FENTANYL PF 100 MCG/2ML IV PRN (12:30)
[2020-03-07] MEDS ORDERED: LABETALOL 5MG/ML, 20ML IV PRN (12:30)
[2020-03-07] MEDS ORDERED: hydrALAzine 20 MG/ML, 1ML IV PRN (12:30)
[2020-03-07] MEDS ORDERED: FENTANYL PF 100 MCG/2ML ONE (12:51)
[2020-03-07] MEDS ORDERED: ROCURONIUM 10MG/ML,5ML ONE (13:10)
[2020-03-07] MEDS ORDERED: GLYCOPYRROLATE 0.2MG/1ML, 5ML ONE (13:10)
[2020-03-07] MEDS ORDERED: PROPOFOL 10 MG/ML, 20ML ONE (13:10)
[2020-03-07] MEDS ORDERED: NEOSTIGMINE 1 MG/ML, 10ML ONE (13:10)
[2020-03-07] MEDS ORDERED: DEXAMETHASONE 4 MG/ML, 1ML ONE (13:10)
[2020-03-07] MEDS ORDERED: SUCCINYLCHOLINE 20 MG/ML, 10ML ONE (13:10)
[2020-03-07] MEDS ORDERED: ONDANSETRON 2MG/ML, 2ML ONE (13:10)
[2020-03-07] MEDS ORDERED: CEFAZOLIN 1,000 MG ONE (13:10)
[2020-03-07] MEDS ORDERED: OMNIPAQUE 350 MG/ML, 50 ML BOTTLE ONE (13:23)
[2020-03-07 14:29] VITALS: BP 100/53
[2020-03-07 19:58] VITALS: BP 116/70
[2020-03-07] MEDS: ATORVASTATIN 20 MG TABLET PO SCH (20:26)
[2020-03-07] MEDS: ACETAMINOPHEN 325 MG TABLET PO PRN (21:25)
[2020-03-08 02:07] VITALS: BP 129/64
[2020-03-08] MEDS: ACETAMINOPHEN 325 MG TABLET PO PRN (02:34)
[2020-03-08] MEDS: HEPARIN 5,000 UNITS/ML, 1ML SQ SCH ×3 (02:35→17:36)
[2020-03-08 04:24] LABS: ALBUMIN 2.7 g/dL (3.4-5.0); ANION GAP 10 mmol/L (5-15); CALCIUM 8.1 mg/dL (8.5-10.1); CHLORIDE 107 mmol/L (98-107)
[2020-03-08 04:27] LABS: ALANINE AMINOTRANSFERASE 623 U/L (12-78); ALKALINE PHOSPHATASE 305 U/L (45-117); BILIRUBIN,TOTAL 2.5 mg/dL (0.2-1.0); CREATININE 0.76 mg/dL (0.55-1.02); TOTAL PROTEIN 5.9 g/dL (6.4-8.2)
[2020-03-08 04:30] LABS: MEAN CORPUSCULAR HGB CONC 33.5 g/dL (32.4-35.8); MEAN CORPUSCULAR VOLUME 104.4 fL (80-100); MEAN PLATELET VOLUME 8.1 fL (7.4-10.4); PLATELET COUNT 194 x10^3/uL (130-400); RED BLOOD COUNT 2.79 x10^6/uL (3.82-5.3); RED CELL DISTRIBUTION WIDTH 14.6 % (9.6-15.2)
[2020-03-08] MEDS: SODIUM CHLORIDE 0.9% 1,000 ML IV SCH ×2 (04:56→17:36)
[2020-03-08 04:57] LABS: BASOPHILS # (AUTO) 0.01 x10^3/uL (0-0.1); BASOPHILS % (AUTO) 0 % (0-1); EOSINOPHILS # (AUTO) 0.16 x10^3/uL (0-0.4); EOSINOPHILS % (AUTO) 6 % (1-7); LYMPHOCYTES # (AUTO) 0.58 x10^3/uL (1-3.4); LYMPHOCYTES % (AUTO) 21 % (22-44); MD SCAN; MONOCYTES # (AUTO) 0.17 x10^3/uL (0.2-0.8); MONOCYTES % (AUTO) 6 % (2-9); NEUTROPHILS % (AUTO) 67 % (42-75)
[2020-03-08 08:28] VITALS: BP 131/68
[2020-03-08] MEDS: BENZONATATE 100 MG CAPSULE PO SCH (10:36)
[2020-03-08] MEDS: OMEPRAZOLE 20 MG CAPSULE.DR PO SCH (10:36)
[2020-03-08] MEDS: ACYCLOVIR 400 MG TABLET PO SCH ×2 (10:36→20:17)
[2020-03-08] MEDS: CHOLECALCIFEROL 5,000u TAB PO SCH (10:36)
[2020-03-08] MEDS: SENNOSIDES 8.6 MG TABLET PO SCH (10:36)
[2020-03-08] MEDS: CALCIUM CARBONATE 500 MG TABLET PO SCH ×2 (10:36→20:17)
[2020-03-08] MEDS: OXYBUTYNIN CHLORIDE 5 MG TABLET PO SCH (10:37)
[2020-03-08] MEDS: ASPIRIN 81 MG TABLET EC PO SCH (10:37)
[2020-03-08] MEDS: CITALOPRAM 20 MG TABLET PO SCH (10:37)
[2020-03-08] MEDS: MULTIVITAMINS WITH IRON TABLET PO SCH (10:37)
[2020-03-08 13:24] VITALS: BP 130/70
[2020-03-08 18:49] VITALS: BP 149/76
[2020-03-08] MEDS: ATORVASTATIN 20 MG TABLET PO SCH (20:18)
[2020-03-08] MEDS: TRAZODONE 50MG TABLET PO PRN (22:48)
[2020-03-09] MEDS: SODIUM CHLORIDE 0.9% 1,000 ML IV SCH ×4 (01:40→21:31)
[2020-03-09] MEDS: HEPARIN 5,000 UNITS/ML, 1ML SQ SCH ×3 (01:40→18:00)
[2020-03-09 01:58] VITALS: BP 151/87
[2020-03-09] MEDS: ASPIRIN 81 MG TABLET EC PO SCH (07:38)
[2020-03-09 07:53] VITALS: BP 143/72
[2020-03-09] MEDS: SENNOSIDES 8.6 MG TABLET PO SCH (08:01)
[2020-03-09] MEDS: OMEPRAZOLE 20 MG CAPSULE.DR PO SCH (08:01)
[2020-03-09] MEDS: CHOLECALCIFEROL 5,000u TAB PO SCH (08:02)
[2020-03-09] MEDS: CITALOPRAM 20 MG TABLET PO SCH (08:02)
[2020-03-09] MEDS: MULTIVITAMINS WITH IRON TABLET PO SCH (08:02)
[2020-03-09] MEDS: CALCIUM CARBONATE 500 MG TABLET PO SCH ×2 (08:02→20:19)
[2020-03-09] MEDS: BENZONATATE 100 MG CAPSULE PO SCH (08:02)
[2020-03-09] MEDS: ACYCLOVIR 400 MG TABLET PO SCH ×2 (08:02→20:19)
[2020-03-09] MEDS: OXYBUTYNIN CHLORIDE 5 MG TABLET PO SCH (08:02)
[2020-03-09] MEDS ORDERED: LORazepam 2 MG/ML, 1ML IVPush PRN (11:30)
[2020-03-09 13:56] VITALS: BP 148/85
[2020-03-09] MEDS ORDERED: HYDR-3653 PO (14:39)
[2020-03-09] MEDS ORDERED: GABAPENTIN 300 MG CAPSULE PO STA (15:05)
[2020-03-09] MEDS ORDERED: ACETAMINOPHEN 500 MG TABLET PO STA (15:06)
[2020-03-09] MEDS ORDERED: CHLORHEXIDINE 15 ML UDC MM STA (15:09)
[2020-03-09] MEDS ORDERED: CHLORHEXIDINE 15 ML UDC ONE (16:08)
[2020-03-09] MEDS ORDERED: BUPIVACAINE/PF-EPI 0.5% 1:200K ONE (17:13)
[2020-03-09] MEDS ORDERED: FENTANYL PF 250 MCG/5ML ONE (17:28)
[2020-03-09] MEDS ORDERED: hydrALAzine 20 MG/ML, 1ML IV PRN (17:30)
[2020-03-09] MEDS ORDERED: MEPERIDINE/PF 25MG/0.5ML IVPush PRN (17:30)
[2020-03-09] MEDS ORDERED: LABETALOL 5MG/ML, 20ML IV PRN (17:30)
[2020-03-09] MEDS ORDERED: PROMETHAZINE 25 MG/ML, 1ML IVPush PRN (17:30)
[2020-03-09] MEDS ORDERED: OXYcodone 5 MG/5 ML ORAL.SOL UDC PO PRN (17:30)
[2020-03-09] MEDS ORDERED: GLYCOPYRROLATE 0.2MG/1ML, 5ML ONE (18:29)
[2020-03-09] MEDS ORDERED: DEXAMETHASONE 4 MG/ML, 1ML ONE (18:29)
[2020-03-09] MEDS ORDERED: NEOSTIGMINE 1 MG/ML, 10ML ONE (18:29)
[2020-03-09] MEDS ORDERED: CEFAZOLIN 1,000 MG ONE (18:29)
[2020-03-09] MEDS ORDERED: PROPOFOL 10 MG/ML, 20ML ONE (18:29)
[2020-03-09] MEDS ORDERED: ROCURONIUM 10MG/ML,5ML ONE (18:30)
[2020-03-09] MEDS ORDERED: SUCCINYLCHOLINE 20 MG/ML, 10ML ONE (18:30)
[2020-03-09] MEDS ORDERED: ONDANSETRON 2MG/ML, 2ML ONE (18:30)
[2020-03-09] MEDS ORDERED: FENTANYL PF 100 MCG/2ML ONE (19:01)
[2020-03-09] MEDS ORDERED: OXYcodone 5 MG/5 ML ORAL.SOL UDC ONE (19:02)
[2020-03-09] MEDS: FENTANYL PF 100 MCG/2ML IV PRN ×3 (19:04→22:40)
[2020-03-09] MEDS ORDERED: HYDROmorphone 1 MG/ML, 1ML INJ ONE (19:05)
[2020-03-09] MEDS: HYDROmorphone 1 MG/ML, 1ML INJ IVPush PRN ×2 (19:12→19:28)
[2020-03-09 19:59] VITALS: BP 106/53
[2020-03-09] MEDS: ATORVASTATIN 20 MG TABLET PO SCH (20:19)
[2020-03-09] MEDS ORDERED: HYDROcodone/APAP 5/325 TABLET PO PRN (20:30)
[2020-03-09] MEDS ORDERED: ONDANSETRON 2MG/ML, 2ML IVPush PRN (20:30)
[2020-03-09] MEDS ORDERED: PEDS NS BOLUS IV.SOLN 20ML/KG IVBOLUS ONE (23:30)
[2020-03-09] MEDS ORDERED: OXYcodone/APAP 5/325MG TABLET PO PRN (23:30)
[2020-03-09] MEDS ORDERED: SODIUM CHLORIDE 0.9%, 500ML IVBOLUS ONE (23:30)
[2020-03-10 00:03] VITALS: BP 114/57
[2020-03-10] MEDS: HEPARIN 5,000 UNITS/ML, 1ML SQ SCH ×3 (00:16→17:25)
[2020-03-10] MEDS: SODIUM CHLORIDE 0.9% 1,000 ML IV SCH ×4 (01:05→17:35)
[2020-03-10] MEDS: FENTANYL PF 100 MCG/2ML IV PRN ×5 (01:05→17:28)
[2020-03-10] MEDS ORDERED: HYDROmorphone 1 MG/ML, 1ML INJ IVPush ONE (02:00)
[2020-03-10 04:27] VITALS: BP 109/58
[2020-03-10 06:06] LABS: ALBUMIN 3.2 g/dL (3.4-5.0); ANION GAP 10 mmol/L (5-15); CALCIUM 8.1 mg/dL (8.5-10.1); CHLORIDE 110 mmol/L (98-107)
[2020-03-10 06:10] LABS: ALANINE AMINOTRANSFERASE 328 U/L (12-78); ALKALINE PHOSPHATASE 232 U/L (45-117); BILIRUBIN,TOTAL 0.7 mg/dL (0.2-1.0); CREATININE 1.03 mg/dL (0.55-1.02); TOTAL PROTEIN 6.8 g/dL (6.4-8.2)
[2020-03-10 06:13] LABS: BASOPHILS # (AUTO) 0.01 x10^3/uL (0-0.1); BASOPHILS % (AUTO) 0 % (0-1); EOSINOPHILS # (AUTO) 0.09 x10^3/uL (0-0.4); EOSINOPHILS % (AUTO) 1 % (1-7); LYMPHOCYTES # (AUTO) 1.37 x10^3/uL (1-3.4); LYMPHOCYTES % (AUTO) 20 % (22-44); MD NO; MEAN CORPUSCULAR HEMOGLOBIN 34.9 pg (27.0-34.8); MEAN CORPUSCULAR HGB CONC 33.4 g/dL (32.4-35.8); MEAN CORPUSCULAR VOLUME 104.3 fL (80-100); MEAN PLATELET VOLUME 7.4 fL (7.4-10.4); MONOCYTES # (AUTO) 0.32 x10^3/uL (0.2-0.8); MONOCYTES % (AUTO) 5 % (2-9); NEUTROPHILS # (AUTO) 4.95 x10^3/uL (1.8-6.8); NEUTROPHILS % (AUTO) 73 % (42-75); PLATELET COUNT 257 x10^3/uL (130-400); RED BLOOD COUNT 3.05 x10^6/uL (3.82-5.3); RED CELL DISTRIBUTION WIDTH 14.7 % (9.6-15.2)
[2020-03-10 07:13] VITALS: BP 117/61
[2020-03-10] MEDS: ASPIRIN 81 MG TABLET EC PO SCH (11:16)
[2020-03-10] MEDS: CITALOPRAM 20 MG TABLET PO SCH (11:16)
[2020-03-10] MEDS: MULTIVITAMINS WITH IRON TABLET PO SCH (11:16)
[2020-03-10] MEDS: CHOLECALCIFEROL 5,000u TAB PO SCH (11:17)
[2020-03-10] MEDS: OXYBUTYNIN CHLORIDE 5 MG TABLET PO SCH (11:17)
[2020-03-10] MEDS: ACYCLOVIR 400 MG TABLET PO SCH ×2 (11:17→20:53)
[2020-03-10] MEDS: BENZONATATE 100 MG CAPSULE PO SCH (11:17)
[2020-03-10] MEDS: SENNOSIDES 8.6 MG TABLET PO SCH (11:17)
[2020-03-10] MEDS: OMEPRAZOLE 20 MG CAPSULE.DR PO SCH (11:17)
[2020-03-10] MEDS: CALCIUM CARBONATE 500 MG TABLET PO SCH ×2 (11:18→20:53)
[2020-03-10] MEDS: METOCLOPRAMIDE 5 MG/ML, 2ML IVPush SCH ×2 (14:16→20:54)
[2020-03-10 14:18] VITALS: BP 136/67
[2020-03-10] MEDS: ACETAMINOPHEN 325 MG TABLET PO PRN ×2 (17:39→21:28)
[2020-03-10 19:22] VITALS: BP 138/76
[2020-03-10] MEDS: ATORVASTATIN 20 MG TABLET PO SCH (20:54)
[2020-03-11 00:54] VITALS: BP 133/73
[2020-03-11] MEDS: SODIUM CHLORIDE 0.9% 1,000 ML IV SCH ×2 (01:01→05:33)
[2020-03-11] MEDS: FENTANYL PF 100 MCG/2ML IV PRN ×3 (02:03→08:43)
[2020-03-11] MEDS: HEPARIN 5,000 UNITS/ML, 1ML SQ SCH ×2 (03:50→12:50)
[2020-03-11] MEDS: METOCLOPRAMIDE 5 MG/ML, 2ML IVPush SCH ×4 (03:50→20:12)
[2020-03-11] MEDS: ACETAMINOPHEN 325 MG TABLET PO PRN (03:51)
[2020-03-11 05:48] LABS: ALANINE AMINOTRANSFERASE 204 U/L (12-78); ALBUMIN 2.6 g/dL (3.4-5.0); ANION GAP 7 mmol/L (5-15); CALCIUM 8.1 mg/dL (8.5-10.1); CHLORIDE 108 mmol/L (98-107); CREATININE 0.63 mg/dL (0.55-1.02)
[2020-03-11 05:50] LABS: ALKALINE PHOSPHATASE 168 U/L (45-117); TOTAL PROTEIN 5.9 g/dL (6.4-8.2)
[2020-03-11 05:53] LABS: BASOPHILS # (AUTO) 0.02 x10^3/uL (0-0.1); BASOPHILS % (AUTO) 0 % (0-1); EOSINOPHILS # (AUTO) 0.18 x10^3/uL (0-0.4); EOSINOPHILS % (AUTO) 3 % (1-7); LYMPHOCYTES # (AUTO) 0.88 x10^3/uL (1-3.4); LYMPHOCYTES % (AUTO) 13 % (22-44); MD NO; MEAN CORPUSCULAR HEMOGLOBIN 34.7 pg (27.0-34.8); MEAN CORPUSCULAR HGB CONC 33.5 g/dL (32.4-35.8); MEAN CORPUSCULAR VOLUME 103.6 fL (80-100); MEAN PLATELET VOLUME 8.1 fL (7.4-10.4); MONOCYTES % (AUTO) 4 % (2-9); NEUTROPHILS # (AUTO) 5.62 x10^3/uL (1.8-6.8); NEUTROPHILS % (AUTO) 80 % (42-75); PLATELET COUNT 212 x10^3/uL (130-400); RED CELL DISTRIBUTION WIDTH 14.1 % (9.6-15.2)
[2020-03-11 07:15] VITALS: BP 139/81
[2020-03-11] MEDS: ACYCLOVIR 400 MG TABLET PO SCH ×2 (08:41→21:00)
[2020-03-11] MEDS: CITALOPRAM 20 MG TABLET PO SCH (08:41)
[2020-03-11] MEDS: BENZONATATE 100 MG CAPSULE PO SCH (08:41)
[2020-03-11] MEDS: CHOLECALCIFEROL 5,000u TAB PO SCH (08:42)
[2020-03-11] MEDS: OMEPRAZOLE 20 MG CAPSULE.DR PO SCH (08:42)
[2020-03-11] MEDS: SENNOSIDES 8.6 MG TABLET PO SCH (08:42)
[2020-03-11] MEDS: OXYBUTYNIN CHLORIDE 5 MG TABLET PO SCH (08:42)
[2020-03-11] MEDS: CALCIUM CARBONATE 500 MG TABLET PO SCH (08:43)
[2020-03-11] MEDS: ASPIRIN 81 MG TABLET EC PO SCH (08:43)
[2020-03-11] MEDS: MULTIVITAMINS WITH IRON TABLET PO SCH (08:49)
[2020-03-11] MEDS: MAGNESIUM HYDROXIDE 8%, 30ML UDC PO SCH ×3 (09:21→21:00)
[2020-03-11] MEDS ORDERED: METHYLNALTREXONE 12 MG/0.6 ML SYR SQ ONE (12:10)
[2020-03-11 12:38] VITALS: BP_SYST 155; BP_SYST 157; BP_DIAS 82; BP_DIAS 84
[2020-03-11] MEDS ORDERED: PINK LADY ENEMA 490 ML BOTTLE PR PRN (18:30)
[2020-03-11 19:57] VITALS: BP 174/80
[2020-03-11] MEDS: KETOROLAC 30 MG/1 ML IVPush PRN (20:11)
[2020-03-11] MEDS: ATORVASTATIN 20 MG TABLET PO SCH (21:00)
[2020-03-12 02:14] VITALS: BP 142/79
[2020-03-12] MEDS: METOCLOPRAMIDE 5 MG/ML, 2ML IVPush SCH ×2 (02:17→08:53)
[2020-03-12] MEDS: KETOROLAC 30 MG/1 ML IVPush PRN (03:40)
[2020-03-12 07:06] VITALS: BP_SYST 151; BP_SYST 160; BP_DIAS 81; BP_DIAS 83
[2020-03-12] MEDS: SENNOSIDES 8.6 MG TABLET PO SCH (08:53)
[2020-03-12] MEDS: OMEPRAZOLE 20 MG CAPSULE.DR PO SCH (08:53)
[2020-03-12] MEDS: CITALOPRAM 20 MG TABLET PO SCH (08:53)
[2020-03-12] MEDS: CHOLECALCIFEROL 5,000u TAB PO SCH (08:53)
[2020-03-12] MEDS: OXYBUTYNIN CHLORIDE 5 MG TABLET PO SCH (08:53)
[2020-03-12] MEDS: ACYCLOVIR 400 MG TABLET PO SCH (08:53)
[2020-03-12] MEDS: BENZONATATE 100 MG CAPSULE PO SCH (08:53)
[2020-03-12] MEDS: ASPIRIN 81 MG TABLET EC PO SCH (08:53)
[2020-03-12] MEDS: MAGNESIUM HYDROXIDE 8%, 30ML UDC PO SCH (08:54)
[2020-03-12 12:59] VITALS: BP 147/71
== END 2020-03-12 16:39 | disposition home or self-care (01) | DRG 417 ==
LOC: ED 22:09 → EDIP 23:41 → 3N 03-07 00:27 → 3WST 03-07 21:22
PROVIDERS: ADMIT Student in an Organized Health Care Education/Training Program; ATTEND Internal Medicine
PROC: 0FC98ZZ Extirpation of Matter from Common Bile Duct, Via Natural or Artificial Opening Endoscopic (ICD-10-PCS; 2020-03-07)
PROC: BF141ZZ Fluoroscopy of Gallbladder, Bile Ducts and Pancreatic Ducts using Low Osmolar Contrast (ICD-10-PCS; 2020-03-07)
PROC: 8E0W4CZ Robotic Assisted Procedure of Trunk Region, Percutaneous Endoscopic Approach (ICD-10-PCS; 2020-03-09)
PROC: 0FT44ZZ Resection of Gallbladder, Percutaneous Endoscopic Approach (ICD-10-PCS; principal; 2020-03-09 16:00)
DX: K80.66 Calculus of gallbladder and bile duct with acute and chronic cholecystitis without obstruction (principal); J96.01 Acute respiratory failure with hypoxia; N17.9 Acute kidney failure, unspecified; B17.9 Acute viral hepatitis, unspecified; E87.1 Hypo-osmolality and hyponatremia; C90.00 Multiple myeloma not having achieved remission; N39.0 Urinary tract infection, site not specified; K82.8 Other specified diseases of gallbladder; K59.03 Drug induced constipation; K57.10 Diverticulosis of small intestine without perforation or abscess without bleeding; K66.0 Peritoneal adhesions (postprocedural) (postinfection); I95.81 Postprocedural hypotension; G89.29 Other chronic pain; F32.9 Major depressive disorder, single episode, unspecified; E78.5 Hyperlipidemia, unspecified; F41.9 Anxiety disorder, unspecified; D72.819 Decreased white blood cell count, unspecified; I10 Essential (primary) hypertension; T40.605A Adverse effect of unspecified narcotics, initial encounter; R04.0 Epistaxis; Z90.711 Acquired absence of uterus with remaining cervical stump; Z79.891 Long term (current) use of opiate analgesic; Y92.89 Other specified places as the place of occurrence of the external cause; Z79.899 Other long term (current) drug therapy; Z91.013 Allergy to seafood
CPT/HCPCS: 36415; 71045; 74181; 74328; 76700; 80053; 83605; 83690; 83735; 84484; 85025; 87635; 88304; 93005; G0378; J0690; J1100; J1170; J1644; J1885; J2405; J2704; J2710; J3010; J7030; Q9967; C1769; J0330; J2060; J2270; J2765

== ENCOUNTER 2020-04-22 11:50 | Emergency (ER) | payer MEDICARE ==
[~2020-04-22] VITALS: Ht 139.7 cm; Wt 67.0 kg
[~2020-04-22 11:50] MED LIST changes: +ASPI-515 PO; +BENZ-17 PO; -CALC-666 PO; +CALC500T14 PO; +OMEP20CA20 PO; +SPIR25TA5 PO
[2020-04-22 12:03] VITALS: BP 124/49
[2020-04-22] MEDS ORDERED: LIDOCAINE-MPF 1%, 5ML INFIL ONE (12:30)
--- NOTE | 2020-04-22 13:13 | NUR ---
IMMIGRATION GUARD: PT TO TO ROOM FROM LOBBY
--- NOTE | 2020-04-22 13:16 | NUR ---
DIMENSIONAL INSPECTOR: PT TO ROOM FROM LOBBY
[2020-04-22] MEDS ORDERED: LIDOCAINE-MPF 1%, 5ML ONE (13:36)
[2020-04-22] MEDS ORDERED: CEFTRIAXONE 1,000 MG ONE (13:36)
[2020-04-22] MEDS ORDERED: CEFTRIAXONE 1,000 MG IM ONE (14:00)
== END 2020-04-22 14:23 | disposition home or self-care (01) ==
LOC: ED 12:20
DX: L03.113 Cellulitis of right upper limb (principal); Z90.89 Acquired absence of other organs; Z90.710 Acquired absence of both cervix and uterus
CPT/HCPCS: 96372; 99283; J0696

== ENCOUNTER → 2020-05-05 | Outpatient (CLI) | payer MEDICARE ==
[~2020-05-05] MED LIST changes: +CALC-666 PO; -CALC500T14 PO
== END | disposition home or self-care (01) ==
LOC: RAD 15:44
PROVIDERS: ATTEND Family Medicine
DX: S80.12XA Contusion of left lower leg, initial encounter (principal); X58.XXXA Exposure to other specified factors, initial encounter; Y93.89 Activity, other specified; Y92.89 Other specified places as the place of occurrence of the external cause; Y99.8 Other external cause status

== ENCOUNTER → 2020-06-10 | Outpatient (CLI) | payer MEDICARE ==
[~2020-06-10] MED LIST changes: -CALC-666 PO; +CALC500T14 PO
== END | disposition home or self-care (01) ==
LOC: RAD 12:01
PROVIDERS: ATTEND Family Medicine
DX: M25.851 Other specified joint disorders, right hip (principal)

== ENCOUNTER → 2020-06-23 | Outpatient (CLI) | payer MEDICARE | END | disposition home or self-care (01) | LOC: ROC 08:42 | PROVIDERS: ATTEND Radiology Radiation Oncology | DX: C90.00 Multiple myeloma not having achieved remission (principal) | CPT/HCPCS: 99214; G0463 ==

== ENCOUNTER 2020-07-29 13:12 | Outpatient (CLI) | payer MEDICARE ==
[2020-07-29] MEDS ORDERED: GADOTERATE 7.5 MMOL/15 ML VIAL ONE (13:45)
== END 2020-07-29 23:59 | disposition home or self-care (01) ==
LOC: RAD 13:12
PROVIDERS: ATTEND Radiology Radiation Oncology
DX: C79.51 Secondary malignant neoplasm of bone (principal); G89.3 Neoplasm related pain (acute) (chronic); M48.55XA Collapsed vertebra, not elsewhere classified, thoracolumbar region, initial encounter for fracture; M51.46 Schmorl's nodes, lumbar region; M51.37 Other intervertebral disc degeneration, lumbosacral region; M48.07 Spinal stenosis, lumbosacral region
CPT/HCPCS: 72158; A9575

== ENCOUNTER → 2020-07-29 | Outpatient (CLI) | payer MEDICARE ==
[~2020-07-29] MED LIST changes: +AMLO-211 PO; -AMLO10TA8 PO
== END | disposition home or self-care (01) ==
LOC: ROC 07:38
PROVIDERS: ATTEND Radiology Radiation Oncology
DX: C90.00 Multiple myeloma not having achieved remission (principal); F32.9 Major depressive disorder, single episode, unspecified; G89.29 Other chronic pain
CPT/HCPCS: 99213; G0463

== ENCOUNTER → 2020-08-19 | Outpatient (CLI) | payer MEDICARE | END | disposition home or self-care (01) | LOC: RAD 07:46 | PROVIDERS: ATTEND Internal Medicine Hematology & Oncology | DX: C90.00 Multiple myeloma not having achieved remission (principal); R22.42 Localized swelling, mass and lump, left lower limb; M71.21 Synovial cyst of popliteal space [Baker], right knee | CPT/HCPCS: 93970 ==

== ENCOUNTER → 2020-09-08 | Outpatient (CLI) | payer MEDICARE ==
[~2020-09-08] MED LIST changes: -MECL12.581 PO; +MECL12.582 PO
== END | disposition home or self-care (01) ==
LOC: PETCFH 13:32
PROVIDERS: ATTEND Internal Medicine Hematology & Oncology
DX: C90.00 Multiple myeloma not having achieved remission (principal); M89.8X8 Other specified disorders of bone, other site
CPT/HCPCS: 78815; A9552

== ENCOUNTER → 2020-10-17 | Outpatient (CLI) | payer MEDICARE | END | disposition home or self-care (01) | LOC: CVU 15:19 | PROVIDERS: ATTEND Family Medicine | DX: M79.89 Other specified soft tissue disorders (principal) | CPT/HCPCS: 93971 ==

== ENCOUNTER 2021-01-12 10:08 | Observation (INO) | payer MEDICARE ==
[~2021-01-12] VITALS: Ht 139.7 cm; Wt 68.1 kg
[~2021-01-12 10:08] MED LIST changes: -ACYC-114 PO; +ACYC-40 PO; -ASPI-515 PO; +ASPI-963 PO; +HYDR-2214 PO; -HYDR-3240 PO; -MECL12.582 PO; +MECL12.590 PO; +METH-639 PO; -METH500T7 PO; -OXYC-302 PO; +OXYC1TAB14 PO; -OXYC5TAB3 PO; +OXYC5TAB98 PO
--- NOTE | 2021-01-12 10:35 | NUR ---
PT C/O CHEST PAIN AND SOB TIMES SEVERAL MONTHS. PT ALSO HAVING PAIN IN HER RIGHT GROIN AREA NEAR THE CREASE IN THE THIGH. PT STATES THAT PAIN HAS BEEN OCCURRING FOR MONTHS WELL, BUT WORSENED LAST NIGHT AND BECAME INTOLERABLE. PT STATES SHE HAS HAD BOTH ISSUES EXAMINED BY DOCTORS, BUT NO RESOLUTIONS.
[2021-01-12 11:25] LABS: BASOPHILS % (AUTO) 1 % (0-1); EOSINOPHILS % (AUTO) 7 % (1-7); LYMPHOCYTES % (AUTO) 24 % (22-44); MEAN CORPUSCULAR HEMOGLOBIN 36.3 pg (27.0-34.8); MEAN CORPUSCULAR HGB CONC 34.4 g/dL (32.4-35.8); MEAN PLATELET VOLUME 7.3 fL (7.4-10.4); MONOCYTES % (AUTO) 10 % (2-9); NEUTROPHILS % (AUTO) 58 % (42-75); PLATELET COUNT 286 x10^3/uL (130-400)
[2021-01-12 11:27] LABS: MD NO
[2021-01-12 11:35] LABS: ALANINE AMINOTRANSFERASE 16 U/L (12-78); ALBUMIN 3.8 g/dL (3.4-5.0); CALCIUM 8.7 mg/dL (8.5-10.1); CREATININE 0.98 mg/dL (0.55-1.02)
[2021-01-12 11:37] LABS: INTERNATIONAL NORMALIZED RATIO 1.03 (0.93-1.1)
[2021-01-12 11:38] LABS: ALKALINE PHOSPHATASE 53 U/L (45-117); BILIRUBIN,TOTAL 0.3 mg/dL (0.2-1.0); TOTAL PROTEIN 7.8 g/dL (6.4-8.2); TROPONIN I < 0.015 ng/mL (0.000-0.045)
[2021-01-12 11:43] LABS: ANION GAP 9 mmol/L (5-15); CHLORIDE 98 mmol/L (98-107)
--- NOTE | 2021-01-12 12:16 | NUR ---
CT WAITING FOR U/S TO FINISH
--- NOTE | 2021-01-12 12:53 | NUR ---
BREAK RN: PT AT CT
--- NOTE | 2021-01-12 13:09 | NUR ---
BREAK RN: PT BACK FROM CT. REPORT GIVEN TO PRIMARY RN
[2021-01-12] MEDS ORDERED: OMNIPAQUE 350 MG/ML, 75ML BOTTLE ONE (13:17)
[2021-01-12] MEDS ORDERED: OXYcodone/APAP 10/325MG TABLET ONE (14:37)
[2021-01-12] MEDS ORDERED: OXYcodone/APAP 10/325MG TABLET PO ONE (15:00)
[2021-01-12] MEDS ORDERED: ACETAMINOPHEN 325 MG TABLET PO PRN (15:30)
[2021-01-12] MEDS ORDERED: ONDANSETRON 2MG/ML, 2ML IVPush PRN (15:30)
[2021-01-12] MEDS: ENOXAPARIN 40 MG/0.4 ML SQ SCH (15:30)
[2021-01-12] MEDS ORDERED: ONDANSETRON ODT 4 MG PO PRN (15:30)
[2021-01-12] MEDS ORDERED: morphine SULFATE 10 MG/ML, 1ML IVPush PRN (15:30)
[2021-01-12] MEDS ORDERED: POLYETHYLENE GLYCOL 17 GM PACKET PO PRN (15:30)
[2021-01-12] MEDS ORDERED: OXYcodone/APAP 10/325MG TABLET PO PRN (16:00)
[2021-01-12 16:33] VITALS: BP 134/80
[2021-01-12] MEDS: GABAPENTIN 300 MG CAPSULE PO SCH ×2 (17:33→20:54)
[2021-01-12 18:59] VITALS: BP 113/67
[2021-01-12] MEDS: OXYBUTYNIN CHLORIDE 5 MG TABLET PO SCH (20:54)
[2021-01-12] MEDS: ACYCLOVIR 400 MG TABLET PO SCH (20:54)
[2021-01-12] MEDS ORDERED: ATORVASTATIN 20 MG TABLET PO SCH (21:00)
[2021-01-13 00:12] VITALS: BP 144/85
[2021-01-13 05:39] LABS: BASOPHILS % (AUTO) 1 % (0-1); EOSINOPHILS % (AUTO) 5 % (1-7); LYMPHOCYTES % (AUTO) 24 % (22-44); MEAN CORPUSCULAR HEMOGLOBIN 36.6 pg (27.0-34.8); MEAN PLATELET VOLUME 7.1 fL (7.4-10.4); MONOCYTES % (AUTO) 7 % (2-9); NEUTROPHILS % (AUTO) 64 % (42-75); PLATELET COUNT 281 x10^3/uL (130-400); RED BLOOD COUNT 3.14 x10^6/uL (3.82-5.3); RED CELL DISTRIBUTION WIDTH 14.8 % (9.6-15.2)
[2021-01-13 05:48] LABS: CHLORIDE 100 mmol/L (98-107)
[2021-01-13 06:03] LABS: MD NO
[2021-01-13 06:20] LABS: ALANINE AMINOTRANSFERASE 19 U/L (12-78); ALBUMIN 3.7 g/dL (3.4-5.0); ALKALINE PHOSPHATASE 53 U/L (45-117); ANION GAP 3 mmol/L (5-15); BILIRUBIN,TOTAL 0.4 mg/dL (0.2-1.0); CALCIUM 9.3 mg/dL (8.5-10.1); CHOL/HDL RATIO 3.3; CHOLESTEROL, TOTAL 169 mg/dL (140-239); CREATININE 0.99 mg/dL (0.55-1.02); HDL CHOL % 31 % (28-40); HDL CHOLESTEROL (DIRECT) 52 mg/dL (40-60); LDL CHOLESTEROL,CALCULATED 76 mg/dL (54-169); LDL/HDL RATIO 1.5 (0.5-3.0); TOTAL PROTEIN 7.5 g/dL (6.4-8.2); TRIGLYCERIDES 206 mg/dL (50-200); TROPONIN I < 0.015 ng/mL (0.000-0.045); VLDL CHOLESTEROL 41 mg/dL (0-25)
[2021-01-13 07:50] VITALS: BP 122/94
[2021-01-13] MEDS: OXYBUTYNIN CHLORIDE 5 MG TABLET PO SCH (08:11)
[2021-01-13] MEDS: GABAPENTIN 300 MG CAPSULE PO SCH (08:11)
[2021-01-13] MEDS: ACYCLOVIR 400 MG TABLET PO SCH (08:11)
[2021-01-13] MEDS ORDERED: CITALOPRAM 20 MG TABLET PO SCH (09:00)
[2021-01-13] MEDS ORDERED: SPIRONOLACTONE 25 MG TABLET PO SCH (09:00)
[2021-01-13] MEDS ORDERED: SENNA/DOCUSATE TABLET PO SCH (09:00)
[2021-01-13] MEDS ORDERED: OMEPRAZOLE 20 MG CAPSULE.DR PO SCH (09:00)
[2021-01-13] MEDS ORDERED: ASPIRIN 81 MG TABLET EC PO SCH (09:00)
[2021-01-13] MEDS ORDERED: REGADENOSON 0.4 MG/5 ML SYRINGE ONE (09:06)
[2021-01-13] MEDS ORDERED: LORazepam 2 MG/ML, 1ML IVPush ONE (10:30)
[2021-01-13 14:00] VITALS: BP 175/89
[2021-01-13] MEDS: ENOXAPARIN 40 MG/0.4 ML SQ SCH (15:30)
[2021-01-13] MEDS ORDERED: GABAPENTIN 100 MG CAPSULE PO SCH (16:00)
[2021-01-13 17:02] VITALS: BP 175/89
[2021-01-13] MEDS ORDERED: LORazepam 0.5MG TABLET PO ONE (17:30)
[2021-01-13] MEDS ORDERED: GABA-826 PO (17:32)
[2021-01-13] MEDS ORDERED: HYDR-826 PO (17:32)
[2021-01-13] MEDS ORDERED: OXYC-380 PO (17:32)
== END 2021-01-13 18:14 | disposition home or self-care (01) ==
LOC: ED 11:02 → EDIP 14:09 → INTOOBSV 14:09 → SUATTDRO 14:16 → 5SO 15:32
PROVIDERS: ADMIT Family Medicine; ATTEND Family Medicine
DX: R07.89 Other chest pain (principal); G89.29 Other chronic pain; M79.604 Pain in right leg; C90.00 Multiple myeloma not having achieved remission; E87.1 Hypo-osmolality and hyponatremia; D53.9 Nutritional anemia, unspecified; I10 Essential (primary) hypertension; E78.5 Hyperlipidemia, unspecified; N39.41 Urge incontinence; K21.9 Gastro-esophageal reflux disease without esophagitis; M81.0 Age-related osteoporosis without current pathological fracture; M84.48XA Pathological fracture, other site, initial encounter for fracture; M79.89 Other specified soft tissue disorders; F41.9 Anxiety disorder, unspecified; Z79.899 Other long term (current) drug therapy; Z90.710 Acquired absence of both cervix and uterus; Z79.82 Long term (current) use of aspirin
CPT/HCPCS: 36415; 71045; 71275; 73502; 78452; 80053; 80061; 82607; 83036; 83880; 84484; 85025; 85610; 85730; 93005; 93017; 93306; 93971; 96372; 96374; 97161; 97166; 97535; 99285; A9502; G0378; J1650; J2060; J2785; Q9967

== ENCOUNTER 2021-06-12 09:07 | Outpatient (CLI) | payer MEDICARE ==
[~2021-06-12 09:07] MED LIST changes: +HYDR-826 PO; +OXYC-501 PO; +OXYC1TAB12 PO; -OXYC1TAB14 PO; +POTA-143 PO; -POTA20TA6 PO
== END 2021-06-12 23:59 | disposition home or self-care (01) ==
LOC: CFH 09:07
PROVIDERS: ATTEND Nurse Practitioner
DX: Z12.31 Encounter for screening mammogram for malignant neoplasm of breast (principal); Z13.820 Encounter for screening for osteoporosis; N95.8 Other specified menopausal and perimenopausal disorders; M85.88 Other specified disorders of bone density and structure, other site
CPT/HCPCS: 77063; 77067; 77080